=== PATIENT | male | born 1945 | race Caucasian/White ===

== ENCOUNTER 2017-07-25 14:23 | Inpatient (IN) | payer OTHER, MEDICARE ==
[2017-07-25 15:03] LABS: ABSOLUTE BASOPHILS # (AUTO) 0.1 10^3/uL (0.0-0.2); ABSOLUTE EOSINOPHILS # (AUTO) 0.1 10^3/uL (0.0-0.6); ABSOLUTE LYMPHOCYTES (AUTO) 0.8 10^3/uL (0.5-4.7); ABSOLUTE MONOCYTES (AUTO) 0.6 10^3/uL (0.1-1.4); ABSOLUTE NEUT (AUTO) 5.2 10^3/uL (1.7-8.2); BASOPHILS % (AUTO) 1.3 % (0-2); EOSINOPHILS % (AUTO) 1.8 % (0-6); HEMATOCRIT 43.5 % (37.9-51.0); HEMOGLOBIN 14.4 g/dL (13.5-17.0); MEAN CORPUSCULAR HEMOGLOBIN 33.7 pg (27.0-33.4); MEAN CORPUSCULAR HGB CONC 33.1 g/dL (32.0-36.0); MEAN CORPUSCULAR VOLUME 102 fl (80-97); MONOCYTES % (AUTO) 8.2 % (3-13); PLATELET COUNT 237 10^3/uL (150-450); RED BLOOD COUNT 4.28 10^6/uL (4.35-5.55); RED CELL DISTRIBUTION WIDTH 16.8 % (11.5-14.0); SEGMENTED NEUTROPHILS % (AUTO) 76.7 % (42-78); TOTAL CELLS COUNTED % (AUTO) 100 %; WHITE BLOOD COUNT 6.8 10^3/uL (4.0-10.5)
[2017-07-25 15:11] LABS: ALANINE AMINOTRANSFERASE 21 U/L (21-72); ALBUMIN 4.1 g/dL (3.5-5.0); ALKALINE PHOSPHATASE 68 U/L (38-126); ANION GAP 13 (5-19); ASPARTATE AMINO TRANSFERASE 29 U/L (17-59); BILIRUBIN,DIRECT 0.6 mg/dL (0.0-0.4); BILIRUBIN,TOTAL 0.9 mg/dL (0.2-1.3); BLOOD UREA NITROGEN 22 mg/dL (7-20); CALCIUM 10.2 mg/dL (8.4-10.2); CARBON DIOXIDE 23 mmol/L (22-30); CHLORIDE 110 mmol/L (98-107); CREATINE KINASE 52 U/L (55-170); GLUCOSE 139 mg/dL (75-110); POTASSIUM 4.2 mmol/L (3.6-5.0); SODIUM 146.2 mmol/L (137-145); TOTAL PROTEIN 7.3 g/dL (6.3-8.2)
--- NOTE | 2017-07-25 15:15 | RADIOLOGY REPORT (SQ) ---
EXAM DESCRIPTION: CT HEAD WITHOUT COMPLETED DATE/TIME: 07/25/2017 2:57 pm REASON FOR STUDY: bed 16 s/p fall per dr barragan +loc/on plavix COMPARISON: None. TECHNIQUE: Axial images acquired through the brain without intravenous contrast. Images reviewed wi th bone, brain and subdural windows. Images stored on PACS. All CT scanners at this facility use dose modulation, iterative reconstruction, and/or weight based d osing when appropriate to reduce radiation dose to as low as reasonably achievable (ALARA). [facility]: Dose Right [facility]: CareDose [facility]: Dose Right [facility]: Teradose 4D [facility]: [employer] RADIATION DOSE: CT Rad equipment meets quality standard of care and radiation dose reduction techniq ues were employed. CTDIvol: 64.6 mGy. DLP: 1163 mGy-cm.mGy. LIMITATIONS: None. FINDINGS: VENTRICLES: Prominent. CEREBRUM: No masses. No hemorrhage. No midline shift. Extensive areas of low density in the white matter most likely due to chronic micro-vascular ischemic change/chronic infarction. No evidence for acute infarction. CEREBELLUM: No masses. No hemorrhage. No alteration of density. No evidence for acute infarction. EXTRAAXIAL SPACES: Age-related involutional change. No fluid collections. No masses. ORBITS AND GLOBE: No intra- or extraconal masses. Normal contour of globe without masses. CALVARIUM: No fracture. PARANASAL SINUSES: No fluid or mucosal thickening. SOFT TISSUES: No mass or hematoma. OTHER: No other significant finding. IMPRESSION: EXTENSIVE AREAS OF WHITE MATTER DISEASE PRESUMABLY REPRESENTING CHRONIC MICRO AND MACRO VASCULAR ISCHEMIC CHANGE. NO CT EVIDENCE OF ACUTE INJURY. EVIDENCE OF ACUTE STROKE: NO. TECHNICAL DOCUMENTATION: JOB ID: [id number] Quality ID # [id number]: Final reports with documentation of one or more dose reduction techniques (e.g., Au tomated exposure control, adjustment of the mA and/or kV according to patient size, use of iterative reconstruction technique) 2010 [employer]- All Rights Reserved
[2017-07-25] MEDS ORDERED: NORMAL SALINE 1000 ML 1,000 ML IV ONE (15:17)
--- NOTE | 2017-07-25 15:20 | RADIOLOGY REPORT (SQ) ---
EXAM DESCRIPTION: CT CERVICAL SPINE WITHOUT COMPLETED DATE/TIME: 07/25/2017 2:57 pm REASON FOR STUDY: bed 16 s/p fall per dr barragan +loc/on plavix COMPARISON: None. TECHNIQUE: Axial images acquired through the cervical spine without intravenous contrast. Images re viewed with lung, soft tissue and bone windows. Reconstructed coronal and sagittal MPR images review ed. Images stored on PACS. All CT scanners at this facility use dose modulation, iterative reconstruction, and/or weight based d osing when appropriate to reduce radiation dose to as low as reasonably achievable (ALARA). [facility]: Dose Right [facility]: CareDose [facility]: Dose Right [facility]: Teradose 4D [facility]: [employer] RADIATION DOSE: CT Rad equipment meets quality standard of care and radiation dose reduction techniq ues were employed. CTDIvol: 17.0 mGy. DLP: 366 mGy-cm. mGy. LIMITATIONS: None. FINDINGS: ALIGNMENT: Anatomic. MINERALIZATION: Normal. VERTEBRAL BODIES: No fractures or dislocation. DISCS: Multilevel disc space narrowing with osteophytes. FACETS, LATERAL MASSES, POSTERIOR ELEMENTS: Facet arthropathy. No fractures. No dislocation. No ac [place] findings. HARDWARE: None in the spine. VISUALIZED RIBS: No fractures. LUNG APICES AND SOFT TISSUES: there are extensive atherosclerotic calcifications with dolichoectasia /aneurysmal dilatation of the left common and internal carotid artery is measuring up to 1.8 cm. Sof t tissues otherwise unremarkable. OTHER: No other significant finding. IMPRESSION: DEGENERATIVE CHANGE OF THE CERVICAL SPINE WITHOUT FRACTURE. 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 TECHNICAL DOCUMENTATION: JOB ID: [id number] Quality ID # [id number]: Final reports with documentation of one or more dose reduction techniques (e.g., Au tomated exposure control, adjustment of the mA and/or kV according to patient size, use of iterative reconstruction technique) 2010 [employer]- All Rights Reserved
--- NOTE | 2017-07-25 15:21 | RADIOLOGY REPORT (SQ) ---
EXAM DESCRIPTION: CHEST SINGLE VIEW COMPLETED DATE/TIME: 07/25/2017 3:07 pm REASON FOR STUDY: bed 16 COMPARISON: None. NUMBER OF VIEWS: One view. TECHNIQUE: Single frontal radiographic view of the chest acquired. LIMITATIONS: None. FINDINGS: LUNGS AND PLEURA: Retrocardiac airspace disease/ pleural effusion. Lungs otherwise clear. No pneumothorax. MEDIASTINUM AND HILAR STRUCTURES: No masses. Contour normal. HEART AND VASCULAR STRUCTURES: Heart enlarged without failure. Normal vasculature. BONES: No acute findings. HARDWARE: Post CABG change peer OTHER: No other significant finding. IMPRESSION: RETROCARDIAC AIRSPACE DISEASE/ PLEURAL EFFUSION MAY BE ACUTE OR CHRONIC. NO ADDITIONAL ACUTE OR SIGNIFICANT FINDINGS. TECHNICAL DOCUMENTATION: JOB ID: [id number] 1976 [employer]- All Rights Reserved
[2017-07-25 15:23] LABS: CREATINE KINASE MB 1.67 ng/mL (<4.55)
[2017-07-25 15:25] LABS: TROPONIN I 0.077 ng/mL
[2017-07-25 15:32] LABS: INTERNATIONAL RATION (INR) 1.05; PROTHROMBIN TIME 14.5 SEC (11.4-15.4)
--- NOTE | 2017-07-25 15:55 | ER Document Report ---
ED General - General Information source: Patient <ADELINA JACOBO - Last Filed: 07/26/17 00:42> - General Information source: Patient TRAVEL OUTSIDE OF THE [place] IN LAST 30 DAYS: No <HERIBERTO TREADWELL - Last Filed: 07/26/17 00:51> <DEENA VALDEZ - Last Filed: 07/26/17 00:57> - General Chief Complaint: Syncope Stated Complaint: POSSIBLE SYNCOPE Time Seen by Provider: 07/25/17 14:45 Notes: Mr. Vilchis is a 71 y.o male with a PMHx of HTN, COPD, double bypass surgery and multiple back surgeries. He presents to the ED s/p syncopal episode. A nurse saw him collapse to the floor of [facility] not breathing and without a pulse. She preformed CPR for about one minute and he did not have to receive any medication or a shock. He states that he was in [facility] and woke up with people gathered around him. He states that he was feeling well before going to [facility] but does admit to lightheadedness. Patient reports pain to his chest wall consistent with receiving compressions. Patient denies any N/V/D or paresthesia. He denies any Hx of DM or thyroid issues. Patient states that he used to wear an oxygen concentrator but denies using any oxygen at home recently because he was reexamined and his doctor told him he did not need the oxygen anymore. He reports taking Plavix. (HERIBERTO TREADWELL) - Related Data Allergies/Adverse Reactions: No Known Allergies Allergy (Verified 07/25/17 14:48) Past Medical History - General Information source: Patient - Social History Smoking Status: Former Smoker - quit 6 months ago Cigarette use (# per day): No Chew tobacco use (# tins/day): No Frequency of alcohol use: None Drug Abuse: None Patient has suicidal ideation: No Patient has homicidal ideation: No - Past Medical History Cardiac Medical History: Reports: Hx Hypercholesterolemia, Hx Hypertension Pulmonary Medical History: Reports: Hx COPD Renal/ Medical History: Denies: Hx Peritoneal Dialysis Past Surgical History: Reports: Hx Cardiac Catheterization, Hx Cardiac Surgery - double bypass <HERIBERTO TREADWELL - Last Filed: 07/26/17 00:51> - Social History Family History: CAD - Past Medical History Cardiac Medical History: Reports: Hx Hypertension <MISTIDEENA - Last Filed: 07/26/17 00:57> Review of Systems - Review of Systems Constitutional: No symptoms reported EENT: No symptoms reported Cardiovascular: Chest pain - Chest wall, Syncope - vs cardiac arrest, Lightheaded Respiratory: No symptoms reported Gastrointestinal: No symptoms reported. denies: Diarrhea, Nausea, Vomiting Genitourinary: No symptoms reported Male Genitourinary: No symptoms reported Musculoskeletal: No symptoms reported Skin: No symptoms reported Hematologic/Lymphatic: No symptoms reported Neurological/Psychological: No symptoms reported <HERIBERTO TREADWELL - Last Filed: 07/26/17 00:51> Physical Exam <ADELINA JACOBO - Last Filed: 07/26/17 00:42> <HERIBERTO TREADWELL - Last Filed: 07/26/17 00:51> <DEENA VALDEZ - Last Filed: 07/26/17 00:57> - Vital signs Vitals: Temp Resp BP Pulse Ox 97.8 F 18 133/92 H 89 L 07/25/17 14:27 07/25/17 14:27 07/25/17 14:27 07/25/17 14:27 - Notes Notes: GENERAL: Alert, interacts well. No acute distress. HEAD: Normocephalic, atraumatic. EYES: Pupils equal, round, and reactive to light. Extraocular movements intact. ENT: Oral mucosa moist, tongue midline. Nares patent, no nasal septal hematoma, TM's intacts. NECK: Full range of motion. Supple. Trachea midline. LUNGS: Clear to auscultation bilaterally, no wheezes, rales, or rhonchi. No respiratory distress. HEART: Regular rate and rhythm. No murmurs, gallops, or rubs. Well healed sternotomy scar. Abrasions to anterior chest wall consistent with CPR through clothing. ABDOMEN: Soft, non-tender. Non-distended. Bowel sounds present in all 4 quadrants. EXTREMITIES: Moves all 4 extremities spontaneously. No edema, radial and dorsalis pedis pulses 2/4 bilaterally. No cyanosis. NEUROLOGICAL: Alert and oriented x3. Normal speech. cranial nerves II through XII grossly intact. Biceps and patellar DTRs 2+ bilaterally. PSYCH: Normal affect, normal mood. SKIN: Warm, dry, normal turgor. (HERIBERTO TREADWELL) Course - Laboratory Result Diagrams: 07/25/17 14:37 07/25/17 14:37 <ADELINA JACOBO - Last Filed: 07/26/17 00:42> - Laboratory Result Diagrams: 07/25/17 14:37 07/25/17 14:37 <HERIBERTO TREADWELL - Last Filed: 07/26/17 00:51> - Laboratory Result Diagrams: 07/25/17 14:37 07/25/17 14:37 <DEENA VALDEZ - Last Filed: 07/26/17 00:57> - Re-evaluation Re-evalutation: 07/25/17 17:32 CBC grossly unremarkable, coags INR slightly prolonged at 1.05, ABG actually appears to be venous with a PO2 of 21.4 and an oxygen saturation of 34.2%, when it was drawn he was approximately 95%. When interpreted as a venous blood gas this is unremarkable, chemistries show elevated BUN and creatinine at 22 and 1.66 respectively, patient states that he knows he has some kidney damage but does not know his usual range, cardiac enzymes are indeterminate with a troponin of 0.077. 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 Chest x-ray does not show any displaced rib fractures, there is some retrocardiac airspace disease versus pleural effusion which may be acute or chronic. No indication for chest tube at this point, no indication for antibiotics, no suspicion for pneumonia. At this point I am not certain the patient actually had a cardiac arrest as he was out for a very short period of time and has come back with no significant abnormalities on his lab, did not require any medications, has not had any alteration in mental status or hypotension and has really grossly normal EKGs. It required less than a full round of CPR to bring him back. I did discuss this patient with Dr. Callahan the hospitalist who agrees with admitting the patient to the hospital for syncope and further observation of his cardiac status. Patient and family members are agreeable to this. Patient will go to the [facility]. 07/25/17 17:36 Hypertension will continue to be followed in the hospital. (DEENA VALDEZ) - Vital Signs Vital signs: Temp Pulse Resp BP Pulse Ox 97.8 F 24 H 143/88 H 94 07/25/17 14:27 07/25/17 19:03 07/25/17 19:03 07/25/17 19:06 - Laboratory Laboratory results interpreted by me: 07/25/17 07/25/17 07/25/17 14:37 14:37 16:10 RBC 4.28 L MCV 102 H MCH 33.7 H RDW 16.8 H Lymphocytes % 12.0 L ABG pO2 21.4 L* ABG O2 Saturation 34.2 L Sodium 146.2 H Chloride 110 H BUN 22 H Creatinine 1.66 H Est GFR ( Amer) 50 L Est GFR (Non-Af Amer) 41 L Glucose 139 H Direct Bilirubin 0.6 H Creatine Kinase 52 L Urine Protein 07/25/17 17:00 RBC MCV MCH RDW Lymphocytes % ABG pO2 ABG O2 Saturation Sodium Chloride BUN Creatinine Est GFR ( Amer) Est GFR (Non-Af Amer) Glucose Direct Bilirubin Creatine Kinase Urine Protein 100 H - EKG Interpretation by Me Additional EKG results interpreted by me: 07/25/17 17:33 EKG shows sinus rhythm rate of 75, intermittent left bundle branch block, 1 PVC , LVH, ST segment depressions with T-wave inversions isolated in V6 per my interpretation. (DEENA VALDEZ) Discharge <ADELINA JACOBO - Last Filed: 07/26/17 00:42> <HERIBERTO TREADWELL - Last Filed: 07/26/17 00:51> - Discharge Admitting Provider: Hospitalist - [place] [facility] Admitted: [facility] <DEENA VALDEZ - Last Filed: 07/26/17 00:57> - Discharge Clinical Impression: Syncope Qualifiers: Syncope type: unspecified Qualified Code(s): R55 - Syncope and collapse Hypertension Qualifiers: Hypertension type: essential hypertension Qualified Code(s): I10 - Essential ( primary) hypertension Condition: Fair Disposition: ADMITTED INPATIENT Scribe Attestation: 07/26/17 00:56 I personally performed the services described in the documentation, reviewed and edited the documentation which was dictated to the scribe in my presence, and it accurately records my words and actions. (DEENA VALDEZ) Scribe Documentation - Scribe Written by Scribe:: Alli Moss, [id number], 07/25/2017 acting as scribe for :: Misti <ADELINA JACOBO - Last Filed: 07/26/17 00:42>
[2017-07-25 16:30] LABS: ARTERIAL BLOOD BASE EXCESS -2.8 mmol/L; ARTERIAL BLOOD H2CO3 1.21 mmol/L (1.05-1.35); ARTERIAL BLOOD HCO3 22.4 mmol/L (20-26); ARTERIAL BLOOD O2 SATURATION 34.2 % (94-98); ARTERIAL BLOOD PCO2 40.1 mmHg (35-45); ARTERIAL BLOOD PH 7.36 (7.35-7.45); ARTERIAL BLOOD TOTAL CO2 23.6 mmol/L (23-27)
[2017-07-25 16:49] LABS: ARTERIAL BLOOD FIO2 21%
[2017-07-25 16:53] LABS: ARTERIAL BLOOD PO2 21.4 mmHg (80-100)
[2017-07-25 17:21] LABS: APPEARANCE,URINE SLIGHTLY-CLOUDY; BILIRUBIN,URINE NEGATIVE (NEGATIVE); COLOR,URINE YELLOW; GLUCOSE, URINE NEGATIVE (NEGATIVE); KETONES,URINE NEGATIVE (NEGATIVE); LEUKOCYTE ESTERASE,URINE NEGATIVE (NEGATIVE); NITRITE,URINE NEGATIVE (NEGATIVE); PROTEIN,URINE 100 mg/dL (NEGATIVE); URINE SPECIFIC GRAVITY 1.023; UROBILINOGEN,URINE NEGATIVE mg/dL (<2.0)
[2017-07-25] MEDS ORDERED: IPRATROPIUM/ALBUTEROL 0.5-2.5 MG/3 ML AMPUL NEB PRN (18:25)
[2017-07-25] MEDS ORDERED: ONDANSETRON 4 MG TAB.RAPDIS PO PRN (18:25)
[2017-07-25] MEDS ORDERED: ACETAMINOPHEN 325 MG TABLET PO PRN (18:25)
--- NOTE | 2017-07-25 18:48 | PDOC H&P ---
History of Present Illness Admission Date/PCP: 07/25/17 17:47 Patient complains of: Passed out History of Present Illness: BRIGITTE KRAMER is a 71 year old male presents to the hospital after going to [facility] in passing out. Patient states that he recently relocated here and has not been wearing his oxygen. Patient states that he does have COPD and has been told that he needs oxygen at all times. Family states that patient has been somewhat unsteady on his feet when he walks around the home. Patient states that he has had episodes of dizziness on a regular basis. When patient was asked more about dizziness he reports that he has at least 2 episodes every 2 weeks. Patient states that he has not passed out before. Patient denies any chest pain, palpitations, nausea, vomiting, or fever. Past Medical History Cardiac Medical History: Reports: Hyperlipidema, Hypertension Pulmonary Medical History: Reports: Chronic Obstructive Pulmonary Disease (COPD) Past Surgical History Past Surgical History: Reports: Cardiac Catheterization Social History Information Source: Patient Lives with: Alone, Family Smoking Status: Former Smoker - quit 6 months ago Frequency of Alcohol Use: None Hx Recreational Drug Use: No Hx Prescription Drug Abuse: No - She goes to - [facility] Resuscitation Status: Full Code Family History Family History: CAD, DM, Hypertension Parental Family History Reviewed: Yes Children Family History Reviewed: Yes Sibling(s) Family History Reviewed.: Yes Medication/Allergy Home Medications: Albuterol Sulfate [Proair Respiclick] 90 mcg IH QID 07/25/17 Amlodipine Besylate 10 mg PO DAILY 07/25/17 Aspirin [Aspirin EC] 81 mg PO DAILY 07/25/17 Budesonide/Formoterol Fumarate [Symbicort 160-4.5 Mcg Inhaler] 10.2 gm IH BID Clopidogrel Bisulfate [Plavix 75 mg Tablet] 75 mg PO DAILY 07/25/17 Furosemide [Lasix 20 mg Tablet] 20 mg PO QAM 07/25/17 Lisinopril 40 mg PO DAILY 07/25/17 Tiotropium [place] [Spiriva Handihaler 18 mcg/dose (30 Dose)] 1 cap IH DAILY 05/01 Allergies/Adverse Reactions: No Known Allergies Allergy (Verified 07/25/17 14:48) Review of Systems Constitutional: PRESENT: weakness, weight loss. ABSENT: chills, fever(s), headache(s), weight gain Eyes: ABSENT: visual disturbances Ears: ABSENT: hearing changes Cardiovascular: ABSENT: chest pain, dyspnea on exertion, edema, orthropnea, palpitations Respiratory: ABSENT: cough, hemoptysis Gastrointestinal: ABSENT: abdominal pain, constipation, diarrhea, hematemesis, hematochezia, nausea, vomiting Genitourinary: ABSENT: dysuria, hematuria Musculoskeletal: PRESENT: muscle weakness. ABSENT: joint swelling Integumentary: ABSENT: rash, wounds Neurological: PRESENT: weakness Psychiatric: ABSENT: anxiety, depression, homidical ideation, suicidal ideation Endocrine: ABSENT: cold intolerance, heat intolerance, polydipsia, polyuria Hematologic/Lymphatic: ABSENT: easy bleeding, easy bruising Physical Exam Vital Signs: Temp Pulse Resp BP Pulse Ox 97.8 F 24 H 165/103 H 91 L 07/25/17 14:27 07/25/17 17:21 07/25/17 17:21 07/25/17 17:21 General appearance: PRESENT: no acute distress, thin Head exam: PRESENT: atraumatic, normocephalic Eye exam: PRESENT: conjunctiva pink, EOMI. ABSENT: scleral icterus Ear exam: PRESENT: normal external ear exam Mouth exam: PRESENT: moist, tongue midline Neck exam: ABSENT: carotid bruit, JVD, lymphadenopathy, thyromegaly Respiratory exam: PRESENT: accessory muscle use. ABSENT: chest wall tenderness , clear to auscultation huong, crackles, decreased breath sounds, prolonged expiratory phas, rales, retraction, rhonchi, stridor, symmetrical, tachypnea, unlabored, wheezes, other Cardiovascular exam: PRESENT: RRR. ABSENT: diastolic murmur, rubs, systolic murmur Pulses: PRESENT: normal dorsalis pedis pul Vascular exam: PRESENT: normal capillary refill GI/Abdominal exam: PRESENT: normal bowel sounds, soft. ABSENT: distended, guarding, mass, organolmegaly, rebound, tenderness Rectal exam: PRESENT: deferred Extremities exam: PRESENT: full ROM. ABSENT: calf tenderness, clubbing, pedal edema Musculoskeletal exam: PRESENT: full ROM Neurological exam: PRESENT: alert, awake, oriented to person, oriented to place , oriented to time, oriented to situation, CN II-XII grossly intact. ABSENT: motor sensory deficit Psychiatric exam: PRESENT: appropriate affect, normal mood. ABSENT: homicidal ideation, suicidal ideation Skin exam: PRESENT: dry, intact, warm. ABSENT: cyanosis, rash Results Impressions: Cervical Spine CT 07/25/17 00:00 IMPRESSION: DEGENERATIVE CHANGE OF THE CERVICAL SPINE WITHOUT FRACTURE. 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 Chest X-Ray 07/25/17 00:00 IMPRESSION: RETROCARDIAC AIRSPACE DISEASE/ PLEURAL EFFUSION MAY BE ACUTE OR CHRONIC. NO ADDITIONAL ACUTE OR SIGNIFICANT FINDINGS. Head CT 07/25/17 00:00 IMPRESSION: EXTENSIVE AREAS OF WHITE MATTER DISEASE PRESUMABLY REPRESENTING CHRONIC MICRO AND MACRO VASCULAR ISCHEMIC CHANGE. NO CT EVIDENCE OF ACUTE INJURY. EVIDENCE OF ACUTE STROKE: NO. Assessment & Plan - Diagnosis (1) Syncope Qualifiers: Syncope type: unspecified Qualified Code(s): R55 - Syncope and collapse Is this a current diagnosis for this admission?: Yes Plan: This patient on telemetry, 2D echo ordered, cardiology consult, and orthostatics. His syncope is most likely result of patient being hypoxic due to him not wearing his oxygen. (2) CAD (coronary artery disease) of bypass graft Is this a current diagnosis for this admission?: Yes Plan: Pt denies chest pain. 2D echo ordered. Cardiology consult placed (3) COPD (chronic obstructive pulmonary disease) Is this a current diagnosis for this admission?: Yes Plan: Requiring continuous O2. Patient will be placed on oxygen here and will have case management see if they can arrange portable oxygen for patient. As needed albuterol written. (4) Hypertension Qualifiers: Hypertension type: essential hypertension Qualified Code(s): I10 - Essential (primary) hypertension Is this a current diagnosis for this admission?: Yes Plan: We will resume patient's home medications once verified (5) HLD (hyperlipidemia) Is this a current diagnosis for this admission?: Yes Plan: Statin (6) CKD (chronic kidney disease) stage 3, GFR 30-59 ml/min Is this a current diagnosis for this admission?: Yes Plan: Will continue to monitor (7) DVT prophylaxis Is this a current diagnosis for this admission?: Yes Plan: SCDs - Time Time Spent: 30 to 50 Minutes
--- NOTE | 2017-07-25 19:17 | RADIOLOGY REPORT (SQ) ---
EXAM DESCRIPTION: CT CHEST WITHOUT COMPLETED DATE/TIME: 07/25/2017 6:55 pm REASON FOR STUDY: weight loss COMPARISON: 07/25/2017 chest radiograph TECHNIQUE: CT scan performed of the chest without intravenous contrast. Images reviewed with lung, soft tissue and bone windows. Reconstructed coronal and sagittal MPR images reviewed. All images st ored on PACS. All CT scanners at this facility use dose modulation, iterative reconstruction, and/or weight based d osing when appropriate to reduce radiation dose to as low as reasonably achievable (ALARA). [facility]: Dose Right [facility]: CareDose [facility]: Dose Right [facility]: Teradose 4D [facility]: Smart [employer] RADIATION DOSE: CT Rad equipment meets quality standard of care and radiation dose reduction techniq ues were employed. CTDIvol: 6.2 mGy. DLP: 271 mGy-cm. mGy. LIMITATIONS: No technical limitations. FINDINGS: LUNGS AND PLEURA: Moderate bilateral posterior layering effusions. No air bronchograms. No pneumothorax. No discrete masses. HILAR AND MEDIASTINAL STRUCTURES: No identified masses or abnormal nodes. No obvious aneurysm. HEART AND VASCULAR STRUCTURES: Dilated calcified ascending aorta. 4.3 cm. UPPER ABDOMEN: Gallstones. THYROID AND OTHER SOFT TISSUES: No masses. No adenopathy. BONES: Sternal wires. HARDWARE: None in the chest. OTHER: No other significant findings. IMPRESSION: Moderate bilateral posteriorly layering effusions. TECHNICAL DOCUMENTATION: JOB ID: [id number] Quality ID # [id number]: Final reports with documentation of one or more dose reduction techniques (e.g., Au tomated exposure control, adjustment of the mA and/or kV according to patient size, use of iterative reconstruction technique) 2010 [employer]- All Rights Reserved
--- NOTE | 2017-07-25 19:27 | PDOC CONSULTATION ---
Consultation Consult Date: 07/25/17 Attending physician:: ALECIA GREEN Consult reason:: Syncope History of Present Illness Admission Date/PCP: 07/25/17 17:47 Patient complains of: Syncope History of Present Illness: BRIGITTE KRAMER is a 71 year old male presents to the hospital after going to [facility] and passing out. Patient states that he recently relocated here and has not been wearing his oxygen. Patient states that he does have COPD and has been told that he needs oxygen at all times. Family states that patient has been somewhat unsteady on his feet when he walks around the home. Patient states that he has had episodes of dizziness on a regular basis. When patient was asked more about dizziness he reports that he has at least 2 episodes every 2 weeks. Patient states that he has not passed out before. Patient denies any chest pain, palpitations, nausea, vomiting, or fever. This history was reviewed and confirmed. Patient however claims that few weeks ago he had a episode with his stomach ready had nausea vomiting and diarrhea for several days. Patient denied any history of prior syncopal spells, seizure disorder or any history of low blood sugar. He does have history of coronary artery disease having had two-vessel coronary artery bypass graft surgery approximately 5 years ago. He did quit smoking at that time but was diagnosed to have significant COPD. Past Medical History Cardiac Medical History: Reports: Hyperlipidema, Hypertension Pulmonary Medical History: Reports: Chronic Obstructive Pulmonary Disease (COPD) Past Surgical History Past Surgical History: Reports: Cardiac Catheterization, Coronary Artery Bypass Graft Social History Information Source: Patient Lives with: Alone, Family Smoking Status: Former Smoker - quit 6 months ago Frequency of Alcohol Use: None Hx Recreational Drug Use: No Hx Prescription Drug Abuse: No - She goes to - [facility] Resuscitation Status: Full Code Surrogate healthcare decision maker:: Patient's son is the surrogate decision-maker Family History Family History: CAD, DM, Hypertension Parental Family History Reviewed: Yes Children Family History Reviewed: Yes Sibling(s) Family History Reviewed.: Yes Medication/Allergy Home Medications: Albuterol Sulfate [Proair Respiclick] 90 mcg IH QID 07/25/17 Amlodipine Besylate 10 mg PO DAILY 07/25/17 Aspirin [Aspirin EC] 81 mg PO DAILY 07/25/17 Budesonide/Formoterol Fumarate [Symbicort 160-4.5 Mcg Inhaler] 10.2 gm IH BID Clopidogrel Bisulfate [Plavix 75 mg Tablet] 75 mg PO DAILY 07/25/17 Furosemide [Lasix 20 mg Tablet] 20 mg PO QAM 07/25/17 Lisinopril 40 mg PO DAILY 07/25/17 Tiotropium [place] [Spiriva Handihaler 18 mcg/dose (30 Dose)] 1 cap IH DAILY 05/01 Allergies/Adverse Reactions: No Known Allergies Allergy (Verified 07/25/17 14:48) Review of Systems Review of Systems: Please see history of present illness and past medical history as wall. Constitutional: No fever or chills reported. Head : No recent chronic headaches, recent head injury. Eyes: No recent eye pain, diplopia, redness, discharge, acute visual changes. Ears: No recent chronic ear pain, acute hearing loss, ear discharge. Oral cavity: No recent ulcerations, bleeding, oral cavity discomfort. Neck: No recent acute neck pain reported. Hematologic: No recent easy bruising or bleeding or hematologic malignancy reported. Lymphatic: No recent lymphatic malignancy, chronic lymphadenopathy reported yet Cardiovascular system review: See history of present illness. Respiratory system review: No recent chronic cough, hemoptysis, blood clots in the lungs reported. Mild Shortness of breath on exertion. History of COPD Gastrointestinal system review: Negative for any recent acute or chronic abdominal pain, hematemesis, melena, recent change in bowel habits. History of nausea vomiting diarrhea a few weeks ago with self subsided. Genitourinary system review: No recent acute or chronic hematuria, flank pain, UTI etc. reported. Skin system review: Negative for any recent abnormal bruising, no rash, no pruritus reported. Neurologic: History of syncopal spell today and intermittent dizziness. No prior history of strokes, mini strokes, seizure disorder. Psychologic: No history of major psychosis or major depression reported. Musculoskeletal: Minor aches and pains reported. No acute joint swelling reported. Endocrine: No recent polyuria, polydipsia, recent heat or cold intolerance. Physical Exam Vital Signs: Temp Pulse Resp BP Pulse Ox 97.8 F 24 H 143/88 H 94 07/25/17 14:27 07/25/17 19:03 07/25/17 19:03 07/25/17 19:06 Exam: GENERAL: well-nourished and in no acute distress. Alert and oriented x3 HEAD: Atraumatic, normocephalic. EYES: Pupils equal round and reactive to light, extraocular movements intact, sclera anicteric, conjunctiva are normal. ENT: TMs normal, nares patent, oropharynx clear without exudates. Moist mucous membranes. No oral ulcerations or bleeding gums noted NECK: supple without lymphadenopathy. Trachea is central. No cervical or axillary lymphadenopathy noted. Carotids are 2+, JVD WNL LUNGS: Respiration seems nonlabored, no significant accessory muscle action noted. Breath sounds clear to auscultation bilaterally and equal noted. No wheezes rales or rhonchi noted. No significant dullness noted on percussion. CHEST: Palpation of the chest wall shows no significant chest wall tenderness. No other significant abnormalities noted. HEART: [place] [employer], No PSH, 1/6 JAH aortic area, 1/6 perkins systolic murmur mitral area, no rubs, no gallops. ABDOMEN: Soft, no significant tenderness appreciated, normoactive bowel sounds. No guarding, no rebound. No rigidity noted . No masses appreciated. EXTREMITIES: Pedal pulses are 1-2+, no calf tenderness noted. No clubbing or cyanosis.trace to 1+ pedal edema noted NEUROLOGICAL: Focused neurological exam showed no significant neurologic deficit. Normal speech, no focal weakness appreciated. PSYCH: Normal mood, normal affect. Judgment and insight within normal limits. SKIN: No significant ecchymosis, rash, ulcerations or signs of pruritus noted. MUSCULOSKELETAL EXAM: No significant joint swelling noted. Results EKG Comments: Sinus rhythm, left bundle branch block pattern. No acute ST-T wave changes noted. Impressions: Cervical Spine CT 07/25/17 00:00 IMPRESSION: DEGENERATIVE CHANGE OF THE CERVICAL SPINE WITHOUT FRACTURE. 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 Chest CT 07/25/17 00:00 IMPRESSION: Moderate bilateral posteriorly layering effusions. Chest X-Ray 07/25/17 00:00 IMPRESSION: RETROCARDIAC AIRSPACE DISEASE/ PLEURAL EFFUSION MAY BE ACUTE OR CHRONIC. NO ADDITIONAL ACUTE OR SIGNIFICANT FINDINGS. Head CT 07/25/17 00:00 IMPRESSION: EXTENSIVE AREAS OF WHITE MATTER DISEASE PRESUMABLY REPRESENTING CHRONIC MICRO AND MACRO VASCULAR ISCHEMIC CHANGE. NO CT EVIDENCE OF ACUTE INJURY. EVIDENCE OF ACUTE STROKE: NO. Assessment & Plan - Diagnosis (1) Syncope Qualifiers: Syncope type: unspecified Qualified Code(s): R55 - Syncope and collapse Is this a current diagnosis for this admission?: Yes (2) Coronary artery disease Qualifiers: Coronary Disease-Associated Artery/Lesion type: unspecified vessel or lesion type [place] vs. transplanted heart: [place] heart Associated angina: angina presence unspecified Qualified Code(s): I25.10 - Atherosclerotic heart disease of [place] coronary artery without angina pectoris Is this a current diagnosis for this admission?: Yes (3) CKD (chronic kidney disease) stage 3, GFR 30-59 ml/min Is this a current diagnosis for this admission?: Yes (4) COPD (chronic obstructive pulmonary disease) Qualifiers: COPD type: unspecified COPD Qualified Code(s): J44.9 - Chronic obstructive pulmonary disease, unspecified Is this a current diagnosis for this admission?: Yes (5) HLD (hyperlipidemia) Is this a current diagnosis for this admission?: Yes (6) Hypertension Qualifiers: Hypertension type: essential hypertension Qualified Code(s): I10 - Essential (primary) hypertension Is this a current diagnosis for this admission?: Yes - Notes Notes: Syncope: Exact etiology not clear but could be related to cardiac dysrhythmia at patient's age. Possible orthostatic hypotension, possibly vasovagal, hypoglycemia transient, seizure disorder, hypoxemia etc. in the differential diagnosis. Patient will benefit from cardiac monitoring while inpatient and also as an outpatient. Patient will need a 2D echocardiogram. Coronary artery disease: Currently symptomatically stable without any chest pain. Await cardiac enzymes results. Elderly can have silent NE. COPD: Patient seems to have significant emphysema based on exam. Continue bronchodilator therapy. Chronic kidney disease: Currently stable. Hypertension: Currently stable. Dyslipidemia: Continue statin therapy. - Time Time Spent: 30 to 50 Minutes - CODE STATUS was discussed, patient remains full code. Surrogate decision-maker unchanged. Multiple medical problems were addressed. More than 50% of the time spent coordinating care, discussing management plans with involved caregivers. Management plans discussed with involved personnels. Medical decision making was of moderate to high complexity , patient's has multiple comorbidities. Medications reviewed and adjusted accordingly: Yes
[2017-07-25 19:41] LABS: CREATINE KINASE MB 2.14 ng/mL (<4.55); TROPONIN I 0.081 ng/mL
[2017-07-25] MEDS ORDERED: ONDANSETRON HCL INJ/PF 4 MG/2 ML SDV IV ONE (20:15)
--- NOTE | 2017-07-25 20:49 | EKG REPORT ---
SEVERITY:- ABNORMAL ECG - SINUS RHYTHM PROBABLE LEFT ATRIAL ABNORMALITY LEFT BUNDLE BRANCH BLOCK VPC : Confirmed by: Pascual Salgado 25-Jul-2017 20:49:15
--- NOTE | 2017-07-25 23:51 | RADIOLOGY REPORT (SQ) ---
EXAM DESCRIPTION: CT ABDOMEN AND PELVIS WITHOUT CONTRAST CLINICAL HISTORY: weight loss COMPARISON: None Available. TECHNIQUE: CT of the abdomen and pelvis without IV contrast. FINDINGS: Abdomen: The liver has normal size and density. Cholelithiasis. Date granulomas in the spleen. The pancreas demonstrates fatty replacement. No abnormalities of the adrenal glands. The kidneys have normal size and contour without evidence of hydronephrosis. No obstructing ureteral calculi. Evidence obstruction interpolar left kidney likely represents a cyst. 3.0 cm infrarenal abdominal aortic aneurysm. Aortobifemoral bypass graft. Atherosclerotic vascular calcification. No abnormalities of the visualized IVC. No free intraperitoneal air. The stomach and duodenum have normal course. Pelvis: Enlarged prostate. Urinary bladder is unremarkable. No free pelvic fluid or lymphadenopathy. No dilated loops of large or small bowel. No evidence of appendicitis. Subcutaneous gluteal injection granulomas. The visualized lung bases demonstrate small bilateral pleural effusions and bibasilar atelectasis. Cardiomegaly. Prior median sternotomy. No destructive bone lesions identified. Degenerative change of the spine. DLP: 259.16 mGy-cm IMPRESSION: 1. Cholelithiasis without other CT evidence of acute cholecystitis. 2. Small bilateral pleural effusions. 3. Cardiomegaly. 4. 3.0 cm infrarenal abdominal aortic aneurysm. Continued follow-up in 3 years recommended. Aortobifemoral bypass graft. This exam was performed according to our departmental dose-optimization program, which includes automated exposure control, adjustment of the mA and/or kV according to patient size and/or use of iterative reconstruction technique.
--- NOTE | 2017-07-25 23:54 | EKG REPORT ---
SEVERITY:- ABNORMAL ECG - SINUS RHYTHM PROBABLE LEFT ATRIAL ABNORMALITY LEFT BUNDLE BRANCH BLOCK : Confirmed by: Pascual Salgado 25-Jul-2017 23:54:09
[2017-07-26 01:37] LABS: CREATINE KINASE MB 1.99 ng/mL (<4.55)
[2017-07-26 01:54] LABS: TROPONIN I 0.116 ng/mL
[2017-07-26 05:19] LABS: ABSOLUTE BASOPHILS # (AUTO) 0.1 10^3/uL (0.0-0.2); ABSOLUTE EOSINOPHILS # (AUTO) 0.2 10^3/uL (0.0-0.6); ABSOLUTE MONOCYTES (AUTO) 0.7 10^3/uL (0.1-1.4); BASOPHILS % (AUTO) 1.3 % (0-2); EOSINOPHILS % (AUTO) 2.3 % (0-6); HEMATOCRIT 39.5 % (37.9-51.0); HEMOGLOBIN 13.6 g/dL (13.5-17.0); LYMPHOCYTES % (AUTO) 14.1 % (13-45); MEAN CORPUSCULAR HEMOGLOBIN 34.8 pg (27.0-33.4); MEAN CORPUSCULAR HGB CONC 34.3 g/dL (32.0-36.0); MEAN CORPUSCULAR VOLUME 101 fl (80-97); MONOCYTES % (AUTO) 10.6 % (3-13); PLATELET COUNT 205 10^3/uL (150-450); RED CELL DISTRIBUTION WIDTH 16.3 % (11.5-14.0); SEGMENTED NEUTROPHILS % (AUTO) 71.7 % (42-78); TOTAL CELLS COUNTED % (AUTO) 100 %
[2017-07-26 05:52] LABS: ALANINE AMINOTRANSFERASE 29 U/L (21-72); ALBUMIN 3.3 g/dL (3.5-5.0); ALKALINE PHOSPHATASE 59 U/L (38-126); ANION GAP 6 (5-19); ASPARTATE AMINO TRANSFERASE 34 U/L (17-59); BILIRUBIN,DIRECT 0.6 mg/dL (0.0-0.4); BILIRUBIN,TOTAL 0.7 mg/dL (0.2-1.3); BLOOD UREA NITROGEN 21 mg/dL (7-20); CALCIUM 9.7 mg/dL (8.4-10.2); CARBON DIOXIDE 24 mmol/L (22-30); CHLORIDE 113 mmol/L (98-107); CHOLESTEROL 152.17 mg/dL (0-200); GLUCOSE 89 mg/dL (75-110); MAGNESIUM 1.9 mg/dL (1.6-2.3); POTASSIUM 4.5 mmol/L (3.6-5.0); SODIUM 143.2 mmol/L (137-145); TRIGLYCERIDES 118 mg/dL (<150)
[2017-07-26 06:03] LABS: CREATINE KINASE MB 1.9 ng/mL (<4.55); DIRECT LDL 92 mg/dL (<100)
[2017-07-26 06:10] LABS: FREE T4 (FREE THYROXINE) 1.17 ng/dL (0.78-2.19)
[2017-07-26 06:22] LABS: THYROID STIMULATING HORMONE 1.53 uIU/mL (0.47-4.68)
[2017-07-26] MEDS: LANSOPRAZOLE 30 MG TAB.RAP.DR PO SCH (10:58)
--- NOTE | 2017-07-26 13:04 | Physician Advisory Note ---
Physician Advisor ProgressNote .: [facility] I have [facility] medical record for this patient. Physician Advisor Statement: Please consider documenting, if you agree: 1. "NSTEMI, likely involving the ____ wall & ___ artery"? or "Demand Ischemia (without infarction) of heart due to hypoxemia", or ... 2. "Chronic Hypoxemic Respiratory Failure, needing __L O2 at baseline" 3. If pt is using accessory muscles to breathe & needing more O2 than he used to need --> "Acute Hypoxemic Respiratory Failure evidenced by use of accessory muscles to breathe & now needing __L O2 to maintain O2 sats in the 90s" 4. "Possible pleural effusions, may be due to " 5. Medical necessity: "Not safe for d/c today given continued upward trop I trend, persistent tachypnea, ....", or "I AM CONCERNED about " Status: Appropriate to change to Inpatient status today if attending agrees he is not safe for d/c & isn't expecting transfer to another facility today. Thanks! CK
--- NOTE | 2017-07-26 15:19 | EKG REPORT ---
SEVERITY:- ABNORMAL ECG - SINUS RHYTHM PROBABLE LEFT ATRIAL ABNORMALITY LEFT BUNDLE BRANCH BLOCK : Confirmed by: Pascual Salgado 26-Jul-2017 15:18:24
[2017-07-26] MEDS ORDERED: CLOPIDOGREL BISULFATE 300 MG TABLET PO ONE (15:30)
[2017-07-26] MEDS ORDERED: METOPROLOL SUCCINATE 25 MG TAB.SR.24H PO ONE (15:30)
--- NOTE | 2017-07-26 17:17 | PDOC PROGRESS REPORT ---
Subjective Progress Note for:: 07/26/17 Subjective:: Pt states that he is feeling better. Pt states that he would like to get oxygen for home. Reason For Visit: ACUTE SYNCOPE Physical Exam Vital Signs: Temp Pulse Resp BP Pulse Ox 98.0 F 73 16 131/84 H 98 07/26/17 13:11 07/26/17 16:34 07/26/17 16:34 07/26/17 13:11 07/26/17 16:34 General appearance: PRESENT: no acute distress, thin Head exam: PRESENT: atraumatic, normocephalic Eye exam: PRESENT: conjunctiva pink, EOMI. ABSENT: scleral icterus Ear exam: PRESENT: normal external ear exam Mouth exam: PRESENT: moist, tongue midline Neck exam: ABSENT: carotid bruit, JVD, lymphadenopathy, thyromegaly Respiratory exam: PRESENT: accessory muscle use, decreased breath sounds Cardiovascular exam: PRESENT: RRR. ABSENT: diastolic murmur, rubs, systolic murmur Pulses: PRESENT: normal dorsalis pedis pul Vascular exam: PRESENT: normal capillary refill GI/Abdominal exam: PRESENT: ascites Rectal exam: PRESENT: deferred Extremities exam: PRESENT: full ROM. ABSENT: calf tenderness, clubbing, pedal edema Neurological exam: PRESENT: alert, altered, oriented to person Psychiatric exam: PRESENT: appropriate affect, normal mood. ABSENT: homicidal ideation, suicidal ideation Skin exam: PRESENT: dry, intact, warm. ABSENT: cyanosis, rash Results Laboratory Results: 07/26/17 05:00 07/26/17 05:00 07/26/17 07/26/17 07/26/17 05:00 05:00 05:00 WBC 7.0 RBC 3.90 L Hgb 13.6 Hct 39.5 MCV 101 H MCH 34.8 H MCHC 34.3 RDW 16.3 H Plt Count 205 Seg Neutrophils % 71.7 Lymphocytes % 14.1 Monocytes % 10.6 Eosinophils % 2.3 Basophils % 1.3 Absolute Neutrophils 5.0 Absolute Lymphocytes 1.0 Absolute Monocytes 0.7 Absolute Eosinophils 0.2 Absolute Basophils 0.1 Sodium 143.2 Potassium 4.5 Chloride 113 H Carbon Dioxide 24 Anion Gap 6 BUN 21 H Creatinine 1.43 H Est GFR ( Amer) 59 L Est GFR (Non-Af Amer) 49 L Glucose 89 Calcium 9.7 Magnesium 1.9 Total Bilirubin 0.7 AST 34 ALT 29 Alkaline Phosphatase 59 Total Protein 6.0 L Albumin 3.3 L Triglycerides 118 Cholesterol 152.17 LDL Cholesterol Direct 92 VLDL Cholesterol 24.0 HDL Cholesterol 34 L TSH 1.53 Free T4 1.17 07/25/17 07/26/17 07/26/17 19:00 00:40 05:00 CK-MB (CK-2) 2.14 1.99 1.90 Troponin I 0.081 0.116 0.126 Impressions: Abdomen/Pelvis CT 07/25/17 00:00 IMPRESSION: 1. Cholelithiasis without other CT evidence of acute cholecystitis. 2. Small bilateral pleural effusions. 3. Cardiomegaly. 4. 3.0 cm infrarenal abdominal aortic aneurysm. Continued follow-up in 3 years recommended. Aortobifemoral bypass graft. This exam was performed according to our departmental dose-optimization program, which includes automated exposure control, adjustment of the mA and/or kV according to patient size and/or use of iterative reconstruction technique. Cervical Spine CT 07/25/17 00:00 IMPRESSION: DEGENERATIVE CHANGE OF THE CERVICAL SPINE WITHOUT FRACTURE. 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 Chest CT 07/25/17 00:00 IMPRESSION: Moderate bilateral posteriorly layering effusions. Chest X-Ray 07/25/17 00:00 IMPRESSION: RETROCARDIAC AIRSPACE DISEASE/ PLEURAL EFFUSION MAY BE ACUTE OR CHRONIC. NO ADDITIONAL ACUTE OR SIGNIFICANT FINDINGS. Head CT 07/25/17 00:00 IMPRESSION: EXTENSIVE AREAS OF WHITE MATTER DISEASE PRESUMABLY REPRESENTING CHRONIC MICRO AND MACRO VASCULAR ISCHEMIC CHANGE. NO CT EVIDENCE OF ACUTE INJURY. EVIDENCE OF ACUTE STROKE: NO. Assessment & Plan - Diagnosis (1) Syncope Qualifiers: Syncope type: unspecified Qualified Code(s): R55 - Syncope and collapse Is this a current diagnosis for this admission?: Yes Plan: This patient 2 Echo pending. His syncope is most likely result of patient being hypoxic due to him not wearing his oxygen. (2) NSTEMI (non-ST elevated myocardial infarction) Is this a current diagnosis for this admission?: Yes Plan: Appreciate Cardiology's assistance. Agree with recommendations by cardiology. (3) COPD (chronic obstructive pulmonary disease) Qualifiers: COPD type: unspecified COPD Qualified Code(s): J44.9 - Chronic obstructive pulmonary disease, unspecified Is this a current diagnosis for this admission?: Yes Plan: Trying to arrange portable O2 for patient. (4) Hypertension Qualifiers: Hypertension type: essential hypertension Qualified Code(s): I10 - Essential (primary) hypertension Is this a current diagnosis for this admission?: Yes Plan: Pt on metoprolol and ramipril (5) HLD (hyperlipidemia) Is this a current diagnosis for this admission?: Yes Plan: Statin (6) CKD (chronic kidney disease) stage 3, GFR 30-59 ml/min Is this a current diagnosis for this admission?: Yes Plan: Will continue to monitor (7) DVT prophylaxis Is this a current diagnosis for this admission?: Yes Plan: SCDs - Time Time Spent with patient: 15-24 minutes
--- NOTE | 2017-07-26 18:44 | PDOC PROGRESS REPORT ---
Subjective Progress Note for:: 07/26/17 Subjective:: Patient seems to be doing better with gradual improvement. Patient still has shortness of breath. He is wearing oxygen. Pt is denying any chest arm or neck discomfort. Patient denying any PND, orthopnea. Patient denied any sustained palpitations, dizziness, syncope, near syncope. Patient denying any fever chills. Patient denying any other significant discomfort. Patient is maintaining sinus rhythm. Frequent ventricular ectopies are noted. Review of systems: Rest review of systems negative. Medications: Medications have been reviewed. Reason For Visit: NSTEMI Physical Exam Vital Signs: Temp Pulse Resp BP Pulse Ox 97.6 F 66 16 128/69 H 94 07/26/17 17:09 07/26/17 17:09 07/26/17 16:34 07/26/17 17:09 07/26/17 17:09 Exam: GENERAL: well-nourished and in no acute distress. Alert and oriented x3 HEAD: Atraumatic, normocephalic. EYES: Pupils equal round and reactive to light, extraocular movements intact, sclera anicteric, conjunctiva are normal. ENT: TMs normal, nares patent, oropharynx clear without exudates. Moist mucous membranes. No oral ulcerations or bleeding gums noted NECK: supple without lymphadenopathy. Trachea is central. No cervical or axillary lymphadenopathy noted. Carotids are 2+, JVD WNL LUNGS: Respiration seems nonlabored, no significant accessory muscle action noted. Mild bilateral scattered wheezes rales or rhonchi noted. No significant dullness noted on percussion. CHEST: Palpation of the chest wall shows no significant chest wall tenderness. No other significant abnormalities noted. 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 ABDOMEN: Soft, no significant tenderness appreciated, normoactive bowel sounds. No guarding, no rebound. No rigidity noted . No masses appreciated. EXTREMITIES: Pedal pulses are 1-2+, no calf tenderness noted. No clubbing or cyanosis.trace pedal edema noted NEUROLOGICAL: Focused neurological exam showed no significant neurologic deficit. Normal speech, no focal weakness appreciated. PSYCH: Normal mood, normal affect. Judgment and insight within normal limits. SKIN: No significant ecchymosis, rash, ulcerations or signs of pruritus noted. MUSCULOSKELETAL EXAM: No significant joint swelling noted. Results EKG Comments: Twelve-lead EKG shows sinus rhythm, left bundle branch block pattern. Telemetry strip shows sinus rhythm with frequent APCs and VPCs Impressions: Abdomen/Pelvis CT 07/25/17 00:00 IMPRESSION: 1. Cholelithiasis without other CT evidence of acute cholecystitis. 2. Small bilateral pleural effusions. 3. Cardiomegaly. 4. 3.0 cm infrarenal abdominal aortic aneurysm. Continued follow-up in 3 years recommended. Aortobifemoral bypass graft. This exam was performed according to our departmental dose-optimization program, which includes automated exposure control, adjustment of the mA and/or kV according to patient size and/or use of iterative reconstruction technique. Cervical Spine CT 07/25/17 00:00 IMPRESSION: DEGENERATIVE CHANGE OF THE CERVICAL SPINE WITHOUT FRACTURE. 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 Chest CT 07/25/17 00:00 IMPRESSION: Moderate bilateral posteriorly layering effusions. Chest X-Ray 07/25/17 00:00 IMPRESSION: RETROCARDIAC AIRSPACE DISEASE/ PLEURAL EFFUSION MAY BE ACUTE OR CHRONIC. NO ADDITIONAL ACUTE OR SIGNIFICANT FINDINGS. Head CT 07/25/17 00:00 IMPRESSION: EXTENSIVE AREAS OF WHITE MATTER DISEASE PRESUMABLY REPRESENTING CHRONIC MICRO AND MACRO VASCULAR ISCHEMIC CHANGE. NO CT EVIDENCE OF ACUTE INJURY. EVIDENCE OF ACUTE STROKE: NO. Assessment & Plan - Diagnosis (1) Syncope Qualifiers: Syncope type: unspecified Qualified Code(s): R55 - Syncope and collapse Is this a current diagnosis for this admission?: Yes (2) Coronary artery disease Qualifiers: Coronary Disease-Associated Artery/Lesion type: unspecified vessel or lesion type [place] vs. transplanted heart: [place] heart Associated angina: angina presence unspecified Qualified Code(s): I25.10 - Atherosclerotic heart disease of [place] coronary artery without angina pectoris Is this a current diagnosis for this admission?: Yes (3) CKD (chronic kidney disease) stage 3, GFR 30-59 ml/min Is this a current diagnosis for this admission?: Yes (4) COPD (chronic obstructive pulmonary disease) Qualifiers: COPD type: unspecified COPD Qualified Code(s): J44.9 - Chronic obstructive pulmonary disease, unspecified Is this a current diagnosis for this admission?: Yes (5) HLD (hyperlipidemia) Is this a current diagnosis for this admission?: Yes (6) Hypertension Qualifiers: Hypertension type: essential hypertension Qualified Code(s): I10 - Essential (primary) hypertension Is this a current diagnosis for this admission?: Yes - Notes Notes: Syncope: Exact etiology not clear but could be related to cardiac dysrhythmia at patient's age. Possible orthostatic hypotension, possibly vasovagal, hypoglycemia transient, seizure disorder, hypoxemia etc. in the differential diagnosis. Patient will benefit from cardiac monitoring while inpatient and also as an outpatient. Patient will need a 2D echocardiogram. 2D echocardiogram unfortunately could not be performed yet. Have started patient on small dose of beta-beth, metoprolol XL at 12.5 mg p.o. twice daily. Coronary artery disease: Currently symptomatically stable without any chest pain. Cardiac enzymes came back suggestive for non-STEMI. Elderly can have silent NE. Have started patient on Ranexa 500 mg p.o. twice daily. Have also started patient on high potency statin therapy. Placed patient on Plavix load and maintenance dose. Did not place patient on heparin as there was some note of possible cardiac compression in this patient yesterday. COPD: Patient seems to have significant emphysema based on exam. Continue bronchodilator therapy. Non-STEMI: Patient ruled in for this by cardiac enzymes. Because of patient's severe COPD, will recommend medical management as patient may not be a candidate for repeat bypass surgery. Currently patient chest pain-free. Will consider stress test prior to discharge if patient's pulmonary condition improves. Chronic kidney disease: Currently stable. Hypertension: Currently stable. Dyslipidemia: Continue statin therapy. - Time Time with patient: Greater than 35 minutes - CODE STATUS was discussed, patient remains full code. Surrogate decision-maker unchanged. Multiple medical problems were addressed. More than 50% of the time spent coordinating care, discussing management plans with involved caregivers. Management plans discussed with involved personnels. Medical decision making was of moderate to high complexity, patient's has multiple comorbidities. Medications reviewed and adjusted accordingly: Yes
[2017-07-26] MEDS: ATORVASTATIN CALCIUM 40 MG TABLET PO SCH (22:10)
[2017-07-26] MEDS: RANOLAZINE 500 MG TAB.SR.12H PO SCH (22:10)
[2017-07-27] MEDS: LANSOPRAZOLE 30 MG TAB.RAP.DR PO SCH (05:37)
[2017-07-27 08:00] LABS: TROPONIN I 0.126 ng/mL
--- NOTE | 2017-07-27 09:29 | EKG REPORT ---
SEVERITY:- ABNORMAL ECG - SINUS RHYTHM PROBABLE LEFT ATRIAL ABNORMALITY LEFT BUNDLE BRANCH BLOCK : Confirmed by: Pascual Salgado 27-Jul-2017 09:28:00
[2017-07-27] MEDS: RANOLAZINE 500 MG TAB.SR.12H PO SCH ×2 (09:51→21:27)
[2017-07-27] MEDS: METOPROLOL SUCCINATE 25 MG TAB.SR.24H PO SCH (09:52)
[2017-07-27] MEDS: CLOPIDOGREL BISULFATE 75 MG TABLET PO SCH (09:52)
[2017-07-27] MEDS: RAMIPRIL 1.25 MG CAPSULE PO SCH (09:52)
--- NOTE | 2017-07-27 17:47 | PDOC PROGRESS REPORT ---
Subjective Progress Note for:: 08/03/17 Subjective:: The patient is resting in his bed. He has had no further complaints of chest pain and feels like he is back to his baseline. He states he feels much better after wearing oxygen. He admits that he probably needs to use it at home. He denies fever chills. No chest pain, shortness of breath or cough. No nausea, vomiting or diarrhea. No dysuria, frequency or hematuria Reason For Visit: NSTEMI Physical Exam Vital Signs: Temp Pulse Resp BP Pulse Ox 97.2 F 73 16 124/92 H 94 07/27/17 08:18 07/27/17 14:00 07/27/17 11:07 07/27/17 08:18 07/27/17 11:07 Intake & Output 07/26/17 07/27/17 07/28/17 06:59 06:59 06:59 Intake Total 10 Balance 10 Weight 51.8 kg General appearance: PRESENT: no acute distress, thin, other - Somewhat cachectic Head exam: PRESENT: atraumatic, other - He has some bitemporal wasting Eye exam: PRESENT: conjunctiva pink, EOMI, PERRLA. ABSENT: scleral icterus Ear exam: PRESENT: normal external ear exam Mouth exam: PRESENT: moist, tongue midline Neck exam: ABSENT: carotid bruit, JVD, lymphadenopathy, thyromegaly Respiratory exam: PRESENT: clear to auscultation huong, decreased breath sounds. ABSENT: rales, rhonchi, wheezes Cardiovascular exam: PRESENT: RRR. ABSENT: diastolic murmur, rubs, systolic murmur Pulses: PRESENT: normal dorsalis pedis pul GI/Abdominal exam: PRESENT: normal bowel sounds, soft. ABSENT: distended, guarding, mass, organolmegaly, rebound, tenderness Rectal exam: PRESENT: deferred Extremities exam: PRESENT: full ROM. ABSENT: calf tenderness, clubbing, pedal edema Neurological exam: PRESENT: alert, awake, oriented to person, oriented to place , oriented to time, oriented to situation, CN II-XII grossly intact. ABSENT: motor sensory deficit Psychiatric exam: PRESENT: appropriate affect, normal mood. ABSENT: homicidal ideation, suicidal ideation Skin exam: PRESENT: dry, intact, warm. ABSENT: cyanosis, rash Results Impressions: Abdomen/Pelvis CT 07/25/17 00:00 IMPRESSION: 1. Cholelithiasis without other CT evidence of acute cholecystitis. 2. Small bilateral pleural effusions. 3. Cardiomegaly. 4. 3.0 cm infrarenal abdominal aortic aneurysm. Continued follow-up in 3 years recommended. Aortobifemoral bypass graft. This exam was performed according to our departmental dose-optimization program, which includes automated exposure control, adjustment of the mA and/or kV according to patient size and/or use of iterative reconstruction technique. Cervical Spine CT 07/25/17 00:00 IMPRESSION: DEGENERATIVE CHANGE OF THE CERVICAL SPINE WITHOUT FRACTURE. 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 Chest CT 07/25/17 00:00 IMPRESSION: Moderate bilateral posteriorly layering effusions. Chest X-Ray 07/25/17 00:00 IMPRESSION: RETROCARDIAC AIRSPACE DISEASE/ PLEURAL EFFUSION MAY BE ACUTE OR CHRONIC. NO ADDITIONAL ACUTE OR SIGNIFICANT FINDINGS. Head CT 07/25/17 00:00 IMPRESSION: EXTENSIVE AREAS OF WHITE MATTER DISEASE PRESUMABLY REPRESENTING CHRONIC MICRO AND MACRO VASCULAR ISCHEMIC CHANGE. NO CT EVIDENCE OF ACUTE INJURY. EVIDENCE OF ACUTE STROKE: NO. Assessment & Plan - Diagnosis (1) Syncope Is this a current diagnosis for this admission?: Yes Plan: Likely cardiogenic. He is being followed closely by cardiology and likely will need monitoring as an outpatient (2) NSTEMI (non-ST elevated myocardial infarction) Is this a current diagnosis for this admission?: Yes Plan: Echocardiogram is pending. We await further recommendations from cardiology (3) COPD (chronic obstructive pulmonary disease) Qualifiers: COPD type: unspecified COPD Qualified Code(s): J44.9 - Chronic obstructive pulmonary disease, unspecified Is this a current diagnosis for this admission?: Yes Plan: He has oxygen dependent COPD but had not been wearing his oxygen since he quit smoking. He is encouraged to do so. He already has oxygen in the home. He will continue bronchodilators. He does not seem to be having an acute exacerbation (4) Hypertension Qualifiers: Hypertension type: essential hypertension Qualified Code(s): I10 - Essential (primary) hypertension Is this a current diagnosis for this admission?: Yes Plan: Stable (5) HLD (hyperlipidemia) Is this a current diagnosis for this admission?: Yes Plan: Stable (6) CKD (chronic kidney disease) stage 3, GFR 30-59 ml/min Is this a current diagnosis for this admission?: Yes Plan: Certainly this prohibits him having a cardiac catheterization. Medical management for his heart issues. His kidney function is stable - Time Time Spent with patient: 25-34 minutes - Inpatient Certification Medical Necessity: Need Close Monitoring Due to Risk of Patient Decompensation, Other - Inpatient hospitalization remains necessary. The patient is awaiting final echocardiogram results. Dr. Salgado his indicated that he may need stress testing prior to leaving the hospital. Overall he is looking good and I suspect he can be discharged home in the next 24-48 hours after cardiology makes the recommendations.
--- NOTE | 2017-07-27 19:30 | PDOC PROGRESS REPORT ---
Subjective Progress Note for:: 07/27/17 Subjective:: Patient seems to be doing better with gradual improvement. Patient still has shortness of breath. He is wearing oxygen. Pt is denying any chest arm or neck discomfort. Patient denying any PND, orthopnea. Patient denied any sustained palpitations, dizziness, syncope, near syncope. Patient denying any fever chills. Patient denying any other significant discomfort. Patient is maintaining sinus rhythm. Frequent ventricular ectopies are noted. Review of systems: Rest review of systems negative. Medications: Medications have been reviewed. Reason For Visit: NSTEMI Physical Exam Vital Signs: Temp Pulse Resp BP Pulse Ox 98.1 F 69 16 121/78 98 07/27/17 16:16 07/27/17 16:16 07/27/17 16:16 07/27/17 16:16 07/27/17 16:16 Intake & Output 07/26/17 07/27/17 07/28/17 06:59 06:59 06:59 Intake Total 10 20 Balance 10 20 Weight 51.8 kg Exam: GENERAL: well-nourished and in no acute distress. Alert and oriented x3 HEAD: Atraumatic, normocephalic. EYES: Pupils equal round and reactive to light, extraocular movements intact, sclera anicteric, conjunctiva are normal. ENT: TMs normal, nares patent, oropharynx clear without exudates. Moist mucous membranes. No oral ulcerations or bleeding gums noted NECK: supple without lymphadenopathy. Trachea is central. No cervical or axillary lymphadenopathy noted. Carotids are 2+, JVD WNL LUNGS: Respiration seems nonlabored, no significant accessory muscle action noted. Mild scattered bilateral wheezes rales or rhonchi noted. No significant dullness noted on percussion. CHEST: Palpation of the chest wall shows no significant chest wall tenderness. No other significant abnormalities noted. 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 ABDOMEN: Soft, no significant tenderness appreciated, normoactive bowel sounds. No guarding, no rebound. No rigidity noted . No masses appreciated. EXTREMITIES: Pedal pulses are 1-2+, no calf tenderness noted. No clubbing or cyanosis. Negative pedal edema noted NEUROLOGICAL: Focused neurological exam showed no significant neurologic deficit. Normal speech, no focal weakness appreciated. PSYCH: Normal mood, normal affect. Judgment and insight within normal limits. SKIN: No significant ecchymosis, rash, ulcerations or signs of pruritus noted. MUSCULOSKELETAL EXAM: No significant joint swelling noted. Results EKG Comments: Telemetry strip shows sinus rhythm with frequent APCs and VPCs. Impressions: Abdomen/Pelvis CT 07/25/17 00:00 IMPRESSION: 1. Cholelithiasis without other CT evidence of acute cholecystitis. 2. Small bilateral pleural effusions. 3. Cardiomegaly. 4. 3.0 cm infrarenal abdominal aortic aneurysm. Continued follow-up in 3 years recommended. Aortobifemoral bypass graft. This exam was performed according to our departmental dose-optimization program, which includes automated exposure control, adjustment of the mA and/or kV according to patient size and/or use of iterative reconstruction technique. Cervical Spine CT 07/25/17 00:00 IMPRESSION: DEGENERATIVE CHANGE OF THE CERVICAL SPINE WITHOUT FRACTURE. 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 Chest CT 07/25/17 00:00 IMPRESSION: Moderate bilateral posteriorly layering effusions. Chest X-Ray 07/25/17 00:00 IMPRESSION: RETROCARDIAC AIRSPACE DISEASE/ PLEURAL EFFUSION MAY BE ACUTE OR CHRONIC. NO ADDITIONAL ACUTE OR SIGNIFICANT FINDINGS. Head CT 07/25/17 00:00 IMPRESSION: EXTENSIVE AREAS OF WHITE MATTER DISEASE PRESUMABLY REPRESENTING CHRONIC MICRO AND MACRO VASCULAR ISCHEMIC CHANGE. NO CT EVIDENCE OF ACUTE INJURY. EVIDENCE OF ACUTE STROKE: NO. Assessment & Plan - Diagnosis (1) Syncope Qualifiers: Syncope type: unspecified Qualified Code(s): R55 - Syncope and collapse Is this a current diagnosis for this admission?: Yes (2) Coronary artery disease Qualifiers: Coronary Disease-Associated Artery/Lesion type: unspecified vessel or lesion type [place] vs. transplanted heart: [place] heart Associated angina: angina presence unspecified Qualified Code(s): I25.10 - Atherosclerotic heart disease of [place] coronary artery without angina pectoris Is this a current diagnosis for this admission?: Yes (3) CKD (chronic kidney disease) stage 3, GFR 30-59 ml/min Is this a current diagnosis for this admission?: Yes (4) COPD (chronic obstructive pulmonary disease) Qualifiers: COPD type: unspecified COPD Qualified Code(s): J44.9 - Chronic obstructive pulmonary disease, unspecified Is this a current diagnosis for this admission?: Yes (5) HLD (hyperlipidemia) Is this a current diagnosis for this admission?: Yes (6) Hypertension Qualifiers: Hypertension type: essential hypertension Qualified Code(s): I10 - Essential (primary) hypertension Is this a current diagnosis for this admission?: Yes - Notes Notes: Syncope: Exact etiology not clear but could be related to cardiac dysrhythmia at patient's age. Possible orthostatic hypotension, possibly vasovagal, hypoglycemia transient, seizure disorder, hypoxemia etc. in the differential diagnosis. Patient will benefit from cardiac monitoring while inpatient and also as an outpatient. Patient will need a 2D echocardiogram. 2D echocardiogram unfortunately has not yet been performed. Have started patient on small dose of beta-beth, metoprolol XL at 12.5 mg p.o. twice daily. Coronary artery disease: Currently symptomatically stable without any chest pain. Cardiac enzymes came back suggestive for non-STEMI. Elderly can have silent [place]. Have started patient on Ranexa 500 mg p.o. twice daily. Have also started patient on high potency statin therapy. Placed patient on Plavix load and maintenance dose. Did not place patient on heparin as there was some note of possible cardiac compression in in the field in this patient. Patient seems stable on current regimen. COPD: Patient seems to have significant emphysema based on exam. Continue bronchodilator therapy. Non-STEMI: Patient ruled in for this by cardiac enzymes. Because of patient's severe COPD, will recommend medical management as patient may not be a candidate for repeat bypass surgery. Currently patient chest pain-free. Will consider stress test prior to discharge if patient's pulmonary condition improves. Chronic kidney disease: Currently stable. Hypertension: Currently stable. Dyslipidemia: Continue statin therapy. - Time Time with patient: Greater than 35 minutes - CODE STATUS was discussed, patient remains full code. Surrogate decision-maker unchanged. Multiple medical problems were addressed. More than 50% of the time spent coordinating care, discussing management plans with involved caregivers. Management plans discussed with involved personnels. Medical decision making was of moderate to high complexity, patient's has multiple comorbidities. Medications reviewed and adjusted accordingly: Yes
[2017-07-27] MEDS: ATORVASTATIN CALCIUM 40 MG TABLET PO SCH (21:27)
[2017-07-28 04:38] LABS: ABSOLUTE BASOPHILS # (AUTO) 0.1 10^3/uL (0.0-0.2); ABSOLUTE EOSINOPHILS # (AUTO) 0.2 10^3/uL (0.0-0.6); ABSOLUTE LYMPHOCYTES (AUTO) 0.8 10^3/uL (0.5-4.7); ABSOLUTE MONOCYTES (AUTO) 0.7 10^3/uL (0.1-1.4); BASOPHILS % (AUTO) 1.4 % (0-2); EOSINOPHILS % (AUTO) 3.6 % (0-6); HEMATOCRIT 39.7 % (37.9-51.0); HEMOGLOBIN 13.2 g/dL (13.5-17.0); LYMPHOCYTES % (AUTO) 13.2 % (13-45); MEAN CORPUSCULAR HEMOGLOBIN 33.7 pg (27.0-33.4); MEAN CORPUSCULAR HGB CONC 33.2 g/dL (32.0-36.0); MEAN CORPUSCULAR VOLUME 101 fl (80-97); MONOCYTES % (AUTO) 11.7 % (3-13); PLATELET COUNT 183 10^3/uL (150-450); RED BLOOD COUNT 3.92 10^6/uL (4.35-5.55); RED CELL DISTRIBUTION WIDTH 16.5 % (11.5-14.0); SEGMENTED NEUTROPHILS % (AUTO) 70.1 % (42-78); TOTAL CELLS COUNTED % (AUTO) 100 %; WHITE BLOOD COUNT 5.8 10^3/uL (4.0-10.5)
[2017-07-28 04:55] LABS: ANION GAP 9 (5-19); BLOOD UREA NITROGEN 22 mg/dL (7-20); CALCIUM 10.1 mg/dL (8.4-10.2); CARBON DIOXIDE 23 mmol/L (22-30); CHLORIDE 109 mmol/L (98-107); GLUCOSE 97 mg/dL (75-110); MAGNESIUM 1.7 mg/dL (1.6-2.3); PHOSPHORUS 3.4 mg/dL (2.5-4.5); SODIUM 140.8 mmol/L (137-145)
[2017-07-28] MEDS: LANSOPRAZOLE 30 MG TAB.RAP.DR PO SCH (05:49)
[2017-07-28] MEDS: RANOLAZINE 500 MG TAB.SR.12H PO SCH ×2 (09:45→22:57)
[2017-07-28] MEDS: CLOPIDOGREL BISULFATE 75 MG TABLET PO SCH (09:45)
[2017-07-28] MEDS: RAMIPRIL 1.25 MG CAPSULE PO SCH (09:45)
[2017-07-28] MEDS: METOPROLOL SUCCINATE 25 MG TAB.SR.24H PO SCH (09:45)
--- NOTE | 2017-07-28 11:55 | RADIOLOGY REPORT (SQ) ---
EXAM DESCRIPTION: CAROTID DOPPLER COMPLETED DATE/TIME: 07/28/2017 11:38 am REASON FOR STUDY: Syncope COMPARISON: None. TECHNIQUE: Grayscale ultrasound, Doppler velocity and spectra, and color Doppler images acquired of the extra-cranial carotid and vertebral arteries. Images stored on PACS. LIMITATIONS: None. FINDINGS: RIGHT CAROTID CCA Velocities: Within normal limits. ICA Velocities There is occlusion of the right internal carotid artery. LEFT CAROTID CCA Velocities: Within normal limits. ICA Velocities There is occlusion of the left internal carotid artery. VERTEBRAL ARTERIES: Antegrade flow. Normal waveforms. SUBCLAVIAN ARTERIES: No finding. OTHER: No other significant finding. 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 Other findings as noted above. COMMENT: Quality ID #[id number]: Velocity criteria are extrapolated from the diameter data as defined by t he Society of Radiologists in Ultrasound Consensus Conference. Radiology 2003: 229; 340-346. TECHNICAL DOCUMENTATION: JOB ID: [id number] [employer]- All Rights Reserved
--- NOTE | 2017-07-28 15:57 | PDOC PROGRESS REPORT ---
Subjective Progress Note for:: 07/28/17 Subjective:: Patient is currently hospitalized for syncope as well as a non-ST elevation myocardial infarction. The patient states that he is feeling better. He still has some outstanding testing to be done. Cardiology is following the patient. One thing that has been identified is that the patient should be wearing his oxygen as prescribed. He was not wearing it prior to this admission. The patient has carotid Dopplers a do show disease but this is not quantified on the results. Reason For Visit: NSTEMI Physical Exam Vital Signs: Temp Pulse Resp BP Pulse Ox 97.8 F 63 18 132/86 H 97 07/28/17 12:33 07/28/17 14:00 07/28/17 12:33 07/28/17 12:33 07/28/17 12:33 Intake & Output 07/27/17 07/28/17 07/29/17 06:59 06:59 06:59 Intake Total 10 1225 Balance 10 1225 Weight 51.8 kg 51.8 kg Additional comments: The patient appears much much older than his stated age. He is thin and appears to be very frail. His cognition and mentation are appropriate. His facial appearance is unremarkable. His lungs were actually clear today without rales or wheezing. His cardiac exam is regular without murmurs, gallops or rubs. The abdomen is soft and flat. Bowel sounds are present in the lower quadrants. No guarding or rebound noted. No hernias or masses are noted. The lower extremities are warm to touch without edema. Results Laboratory Results: 07/28/17 04:20 07/28/17 04:20 07/28/17 07/28/17 04:20 04:20 WBC 5.8 RBC 3.92 L Hgb 13.2 L Hct 39.7 MCV 101 H MCH 33.7 H MCHC 33.2 RDW 16.5 H Plt Count 183 Seg Neutrophils % 70.1 Lymphocytes % 13.2 Monocytes % 11.7 Eosinophils % 3.6 Basophils % 1.4 Absolute Neutrophils 4.0 Absolute Lymphocytes 0.8 Absolute Monocytes 0.7 Absolute Eosinophils 0.2 Absolute Basophils 0.1 Sodium 140.8 Potassium 5.0 Chloride 109 H Carbon Dioxide 23 Anion Gap 9 BUN 22 H Creatinine 1.56 H Est GFR ( Amer) 54 L Est GFR (Non-Af Amer) 44 L Glucose 97 Calcium 10.1 Phosphorus 3.4 Magnesium 1.7 Impressions: Abdomen/Pelvis CT 07/25/17 00:00 IMPRESSION: 1. Cholelithiasis without other CT evidence of acute cholecystitis. 2. Small bilateral pleural effusions. 3. Cardiomegaly. 4. 3.0 cm infrarenal abdominal aortic aneurysm. Continued follow-up in 3 years recommended. Aortobifemoral bypass graft. This exam was performed according to our departmental dose-optimization program, which includes automated exposure control, adjustment of the mA and/or kV according to patient size and/or use of iterative reconstruction technique. Cervical Spine CT 07/25/17 00:00 IMPRESSION: DEGENERATIVE CHANGE OF THE CERVICAL SPINE WITHOUT FRACTURE. 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 Chest CT 07/25/17 00:00 IMPRESSION: Moderate bilateral posteriorly layering effusions. Chest X-Ray 07/25/17 00:00 IMPRESSION: RETROCARDIAC AIRSPACE DISEASE/ PLEURAL EFFUSION MAY BE ACUTE OR CHRONIC. NO ADDITIONAL ACUTE OR SIGNIFICANT FINDINGS. Head CT 07/25/17 00:00 IMPRESSION: EXTENSIVE AREAS OF WHITE MATTER DISEASE PRESUMABLY REPRESENTING CHRONIC MICRO AND MACRO VASCULAR ISCHEMIC CHANGE. NO CT EVIDENCE OF ACUTE INJURY. EVIDENCE OF ACUTE STROKE: NO. Carotid Doppler Study 07/28/17 00:00 IMPRESSION: There is occlusion of both internal carotid arteries as noted above. Other findings as noted above. Assessment & Plan - Diagnosis (1) COPD (chronic obstructive pulmonary disease) Qualifiers: COPD type: unspecified COPD Qualified Code(s): J44.9 - Chronic obstructive pulmonary disease, unspecified Is this a current diagnosis for this admission?: Yes (2) NSTEMI (non-ST elevated myocardial infarction) Is this a current diagnosis for this admission?: Yes (3) Syncope Qualifiers: Syncope type: unspecified Qualified Code(s): R55 - Syncope and collapse Is this a current diagnosis for this admission?: Yes (4) CKD (chronic kidney disease) stage 3, GFR 30-59 ml/min Is this a current diagnosis for this admission?: Yes (5) HLD (hyperlipidemia) Is this a current diagnosis for this admission?: Yes (6) Hypertension Qualifiers: Hypertension type: essential hypertension Qualified Code(s): I10 - Essential (primary) hypertension Is this a current diagnosis for this admission?: Yes - Time Time Spent with patient: 15-24 minutes - Inpatient Certification Medical Necessity: Significant Comorbidiites Make Outpatient Treatment Too Risky , Need Close Monitoring Due to Risk of Patient Decompensation, Risk of Complication if Not Cared For in Hospital - Plan Summary Plan Summary: 1. We have encouraged the patient to wear his oxygen for his underlying COPD. 2. We will continue medical management for the non-ST elevation myocardial infarction. Echocardiogram was performed. Results are pending. We appreciate cardiology's involvement. Charge on this patient is pending further recommendations from cardiology which could include stress testing. 3. Syncope unfortunately we do not have quantification of the disease in the carotid arteries. I will ask radiology to reread this. 4. Chronic kidney disease: Stable 5. Hyperlipidemia: Continue medical management 6. Hypertension: Continue medical management
--- NOTE | 2017-07-28 18:50 | XCELERA REPORT ---
[address] [address] Transthoracic Echocardiogram Report Name: BRIGITTE KRAMER Age: 71 yrs Gender: Male : 1945 Patient Status: Inpatient Patient Location: [address] [place] [address] Study Date: 07/28/2017 08:29 AM Height: 69 in Weight: 128 lb BSA: 1.7 m2 Procedure: A complete two-dimensional transthoracic echocardiogram was performed (2D, M-mode, spectral and color flow Doppler). The study was technically difficult with many images being suboptimal in quality. Reason For Study: Syncope Ordering Physician: ALECIA GREEN Performed By: Diana Spencer Interpretation Summary Left ventricular systolic function is moderate to severely reduced. The Ejection Fraction estimate is 30-35% Doppler measurements suggest pseudonormalized left ventricular relaxation, which is associated with grade II/IV or mild to moderate diastolic dysfunction Wall motion cannot be accurately commented on, but no definite regional wall motion abnormalities noted. The left ventricle is grossly normal size. The right ventricle is mildly dilated. The right ventricular systolic function is normal. The right atrium is normal in size The left atrium is mildly dilated. There is a mild to moderate amount of mitral regurgitation There is no mitral valve stenosis. There is no aortic valve stenosis There is a mild amount of aortic regurgitation The aortic root is not well visualized but is probably normal size. The inferior vena cava appeared normal and decreased > 50% with respiration (RAP 5-10 mmHg) There is no pericardial effusion. The pulmonic valve is not well visualized. MMode/2D Measurements & Calculations RVDd: 3.5 cm LVIDd: 5.5 cm FS: 7.2 % Ao root diam: IVSd: 0.91 cm LVIDs: 5.1 cm EDV(Teich): 3.2 cm LVPWd: 0.88 cm 146.4 ml Ao root area: ESV(Teich): 123.2 ml 7.9 cm2 EF(Teich): 15.9 % LA dimension: 4.7 cm LVLd ap4: 9.0 cm SV(MOD-sp4): EDV(MOD-sp4): 29.0 ml 133.0 ml LVLs ap4: 8.0 cm ESV(MOD-sp4): 104.0 ml EF(MOD-sp4): 21.8 % Doppler Measurements & Calculations MV E max cierra: MV P1/2t max cierra: Ao V2 max: AI max cierra: 101.7 cm/sec 102.7 cm/sec 168.3 cm/sec 339.3 cm/sec MV A max cierra: MV P1/2t: 55.5 msec Ao max PG: AI max P.5 cm/sec MVA(P1/2t): 4.0 cm2 11.3 mmHg 46.1 mmHg MV E/A: 1.4 MV dec slope: AI dec slope: 542.2 cm/sec2 162.7 cm/sec2 MV dec time: AI P1/2t: 0.20 sec 611.0 msec LV V1 max PG: PA V2 max: PI end-d cierra: TR max cierra: 2.0 mmHg 81.4 cm/sec 237.5 cm/sec 286.6 cm/sec LV V1 max: PA max P.7 mmHg TR max P.6 cm/sec 32.8 mmHg Left Ventricle The left ventricle is grossly normal size. Left ventricular systolic function is moderate to severely reduced. The Ejection Fraction estimate is 30-35%. Doppler measurements suggest pseudonormalized left ventricular relaxation, which is associated with grade II/IV or mild to moderate diastolic dysfunction. Wall motion cannot be accurately commented on, but no definite regional wall motion abnormalities noted. Right Ventricle The right ventricle is mildly dilated. There is normal right ventricular wall thickness. The right ventricular systolic function is normal. Atria The right atrium is normal in size. The left atrium is mildly dilated. Interarterial septum not well visualized and not well dopplered. Cannot comment on ASD/PFO presence. Mitral Valve There is mild to moderate mitral leaflet calcification. There is no mitral valve stenosis. There is a mild to moderate amount of mitral regurgitation. Aortic Valve The aortic valve is mildly calcified. There is no aortic valve stenosis. There is a mild amount of aortic regurgitation. Tricuspid Valve The tricuspid valve is not well visualized, but is grossly normal. There is no tricuspid stenosis. There is a mild amount of tricuspid regurgitation. Pulmonic Valve The pulmonic valve is not well visualized. Great Vessels The aortic root is not well visualized but is probably normal size. The inferior vena cava appeared normal and decreased > 50% with respiration (RAP 5-10 mmHg). Effusions There is no pericardial effusion. : ALECIA GREEN Shyamal
--- NOTE | 2017-07-28 19:35 | PDOC PROGRESS REPORT ---
Subjective Progress Note for:: 07/28/17 Subjective:: Patient seems to be doing better with gradual improvement. Patient still has shortness of breath. He is wearing oxygen. Pt is denying any chest arm or neck discomfort. Patient denying any PND, orthopnea. Patient denied any sustained palpitations, dizziness, syncope, near syncope. Patient denying any fever chills. Patient denying any other significant discomfort. Patient is maintaining sinus rhythm. Frequent ventricular ectopies are noted. Review of systems: Rest review of systems negative. Medications: Medications have been reviewed. Reason For Visit: NSTEMI Physical Exam Vital Signs: Temp Pulse Resp BP Pulse Ox 97.7 F 70 18 128/80 H 96 07/28/17 15:52 07/28/17 15:52 07/28/17 15:52 07/28/17 15:52 07/28/17 15:52 Intake & Output 07/27/17 07/28/17 07/29/17 06:59 06:59 06:59 Intake Total 10 1225 834 Balance 10 1225 834 Weight 51.8 kg 51.8 kg Exam: GENERAL: well-nourished and in no acute distress. Alert and oriented x3 HEAD: Atraumatic, normocephalic. EYES: Pupils equal round and reactive to light, extraocular movements intact, sclera anicteric, conjunctiva are normal. ENT: TMs normal, nares patent, oropharynx clear without exudates. Moist mucous membranes. No oral ulcerations or bleeding gums noted NECK: supple without lymphadenopathy. Trachea is central. No cervical or axillary lymphadenopathy noted. Carotids are 2+, JVD WNL LUNGS: Respiration seems nonlabored, no significant accessory muscle action noted. Bilateral scattered wheezing, rales or rhonchi noted. No significant dullness noted on percussion. CHEST: Palpation of the chest wall shows no significant chest wall tenderness. No other significant abnormalities noted. 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 ABDOMEN: Soft, no significant tenderness appreciated, normoactive bowel sounds. No guarding, no rebound. No rigidity noted . No masses appreciated. EXTREMITIES: Pedal pulses are 1-2+, no calf tenderness noted. No clubbing or cyanosis.trace to 1+ pedal edema noted NEUROLOGICAL: Focused neurological exam showed no significant neurologic deficit. Normal speech, no focal weakness appreciated. PSYCH: Normal mood, normal affect. Judgment and insight within normal limits. SKIN: No significant ecchymosis, rash, ulcerations or signs of pruritus noted. MUSCULOSKELETAL EXAM: No significant joint swelling noted. Results Laboratory Results: 07/28/17 04:20 07/28/17 04:20 07/28/17 07/28/17 04:20 04:20 WBC 5.8 RBC 3.92 L Hgb 13.2 L Hct 39.7 MCV 101 H MCH 33.7 H MCHC 33.2 RDW 16.5 H Plt Count 183 Seg Neutrophils % 70.1 Lymphocytes % 13.2 Monocytes % 11.7 Eosinophils % 3.6 Basophils % 1.4 Absolute Neutrophils 4.0 Absolute Lymphocytes 0.8 Absolute Monocytes 0.7 Absolute Eosinophils 0.2 Absolute Basophils 0.1 Sodium 140.8 Potassium 5.0 Chloride 109 H Carbon Dioxide 23 Anion Gap 9 BUN 22 H Creatinine 1.56 H Est GFR ( Amer) 54 L Est GFR (Non-Af Amer) 44 L Glucose 97 Calcium 10.1 Phosphorus 3.4 Magnesium 1.7 Impressions: Abdomen/Pelvis CT 07/25/17 00:00 IMPRESSION: 1. Cholelithiasis without other CT evidence of acute cholecystitis. 2. Small bilateral pleural effusions. 3. Cardiomegaly. 4. 3.0 cm infrarenal abdominal aortic aneurysm. Continued follow-up in 3 years recommended. Aortobifemoral bypass graft. This exam was performed according to our departmental dose-optimization program, which includes automated exposure control, adjustment of the mA and/or kV according to patient size and/or use of iterative reconstruction technique. Cervical Spine CT 07/25/17 00:00 IMPRESSION: DEGENERATIVE CHANGE OF THE CERVICAL SPINE WITHOUT FRACTURE. 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 Chest CT 07/25/17 00:00 IMPRESSION: Moderate bilateral posteriorly layering effusions. Chest X-Ray 07/25/17 00:00 IMPRESSION: RETROCARDIAC AIRSPACE DISEASE/ PLEURAL EFFUSION MAY BE ACUTE OR CHRONIC. NO ADDITIONAL ACUTE OR SIGNIFICANT FINDINGS. Head CT 07/25/17 00:00 IMPRESSION: EXTENSIVE AREAS OF WHITE MATTER DISEASE PRESUMABLY REPRESENTING CHRONIC MICRO AND MACRO VASCULAR ISCHEMIC CHANGE. NO CT EVIDENCE OF ACUTE INJURY. EVIDENCE OF ACUTE STROKE: NO. Carotid Doppler Study 07/28/17 00:00 IMPRESSION: There is occlusion of both internal carotid arteries as noted above. Other findings as noted above. Assessment & Plan - Diagnosis (1) Syncope Qualifiers: Syncope type: unspecified Qualified Code(s): R55 - Syncope and collapse Is this a current diagnosis for this admission?: Yes (2) Coronary artery disease Qualifiers: Coronary Disease-Associated Artery/Lesion type: unspecified vessel or lesion type [place] vs. transplanted heart: [place] heart Associated angina: angina presence unspecified Qualified Code(s): I25.10 - Atherosclerotic heart disease of [place] coronary artery without angina pectoris Is this a current diagnosis for this admission?: Yes (3) CKD (chronic kidney disease) stage 3, GFR 30-59 ml/min Is this a current diagnosis for this admission?: Yes (4) COPD (chronic obstructive pulmonary disease) Qualifiers: COPD type: unspecified COPD Qualified Code(s): J44.9 - Chronic obstructive pulmonary disease, unspecified Is this a current diagnosis for this admission?: Yes (5) HLD (hyperlipidemia) Is this a current diagnosis for this admission?: Yes (6) Hypertension Qualifiers: Hypertension type: essential hypertension Qualified Code(s): I10 - Essential (primary) hypertension Is this a current diagnosis for this admission?: Yes (7) NSTEMI (non-ST elevated myocardial infarction) Is this a current diagnosis for this admission?: Yes (8) Cardiomyopathy Qualifiers: Cardiomyopathy type: unspecified Qualified Code(s): I42.9 - Cardiomyopathy , unspecified Is this a current diagnosis for this admission?: Yes (9) Carotid artery occlusion Qualifiers: Laterality: bilateral Qualified Code(s): I65.23 - Occlusion and stenosis of bilateral carotid arteries Is this a current diagnosis for this admission?: Yes - Notes Notes: Syncope: 2D echo shows depressed LVEF at approximately 30-35%. Patient also noted to have bilateral carotid artery occlusion. Discussed that there is possibility that his syncope could have been related to ventricular tachyarrhythmia. However there other multiple competing etiologies that could have caused syncopal spell. Discussed that in view of positive troponin I, which could well be from just syncope, known CAD, the best option for him would be to be transferred to a tertiary care for cardiac catheterization and also electrophysiological study and probable placement of prophylactic defibrillator if no significant revascularization is needed. Patient however declines any transfer and just wishes to be treated medically. Patient was told that this was an inferior option as compared to aggressive approach of transfer with heart catheterization and evaluation for defibrillator treatment. However patient made decision to be just treated medically. Patient subsequently wished to be a DNR. Coronary artery disease: Patient is status post CABG. Currently without any angina symptoms. End STEMI: Patient ruled in for an STEMI based on cardiac enzymes. Patient also has left bundle branch block pattern. Please see discussion above. Cardiomyopathy: Patient noted to have significantly depressed LVEF. Discussed increased risk of sudden cardiac . Patient however does not want to pursue any such option at this time. Carotid artery occlusion: Bilateral total internal carotid artery occlusion noted. Chronic kidney disease: Currently stable. COPD: Currently severe. Patient apparently not been wearing his oxygen although he has home oxygen. Hyperlipidemia: Continue high potency statin therapy. Hypertension: Currently reasonably well controlled. - Time Time with patient: Greater than 35 minutes - CODE STATUS : was discussed, patient remains DO NOT RESUSCITATE. Surrogate decision-maker unchanged. Multiple medical problems were addressed. More than 50% of the time spent coordinating care, discussing management plans with involved caregivers. Management plans discussed with involved personnels. Medical decision making was of moderate to high complexity, patient's has multiple comorbidities. Medications reviewed and adjusted accordingly: Yes
[2017-07-28] MEDS: ATORVASTATIN CALCIUM 40 MG TABLET PO SCH (22:57)
[2017-07-29] MEDS: LANSOPRAZOLE 30 MG TAB.RAP.DR PO SCH (06:05)
[2017-07-29] MEDS: METOPROLOL SUCCINATE 25 MG TAB.SR.24H PO SCH (09:46)
[2017-07-29] MEDS: RANOLAZINE 500 MG TAB.SR.12H PO SCH (09:46)
[2017-07-29] MEDS: RAMIPRIL 1.25 MG CAPSULE PO SCH (09:46)
[2017-07-29] MEDS: CLOPIDOGREL BISULFATE 75 MG TABLET PO SCH (09:46)
--- NOTE | 2017-07-29 11:12 | PDOC DISCHARGE SUMMARY ---
General - Admit/Disc Date/PCP Admission Date/Primary Care Provider: 07/26/17 17:16 Discharge Date: 07/29/17 - Discharge Diagnosis (1) COPD (chronic obstructive pulmonary disease) Is this a current diagnosis for this admission?: Yes (2) NSTEMI (non-ST elevated myocardial infarction) Is this a current diagnosis for this admission?: Yes (3) Syncope Is this a current diagnosis for this admission?: Yes (4) CKD (chronic kidney disease) stage 3, GFR 30-59 ml/min Is this a current diagnosis for this admission?: Yes (5) HLD (hyperlipidemia) Is this a current diagnosis for this admission?: Yes (6) Hypertension Is this a current diagnosis for this admission?: Yes (7) Aneurysm of infrarenal abdominal aorta Is this a current diagnosis for this admission?: Yes - Additional Information Resuscitation Status: Full Code Discharge Diet: Cardiac Discharge Activity: Balance Activity w/Rest Prescriptions: Metoprolol Succinate [Toprol Xl 25 mg Tab.sr] 12.5 mg PO DAILY 60 Days #30 tab.sr.24h Ramipril [Altace 1.25 mg Capsule] 1.25 mg PO DAILY 30 Days #30 capsule Ranolazine [Ranexa 500 mg Tab.sr] 500 mg PO Q12 30 Days #60 tab.sr.12h Home Medications: Albuterol Sulfate [Proair HFA Inhalation Aerosol 8.5 gm MDI] 2 puff IH QIDP PRN 07/26/17 Atorvastatin Calcium [Lipitor 80 mg Tablet] 40 mg PO QHS 07/26/17 Budesonide/Formoterol Fumarate [Symbicort 160-4.5 Mcg Inhaler] 2 gm IH BID 07/26 Clopidogrel Bisulfate [Plavix 75 mg Tablet] 75 mg PO DAILY 07/26/17 Tiotropium [place] [Spiriva] 1 cap PO DAILY 07/26/17 Metoprolol Succinate [Toprol Xl 25 mg Tab.sr] 12.5 mg PO DAILY 60 Days #30 tab.sr.24h 07/29/17 Ramipril [Altace 1.25 mg Capsule] 1.25 mg PO DAILY 30 Days #30 capsule 07/29/17 Ranolazine [Ranexa 500 mg Tab.sr] 500 mg PO Q12 30 Days #60 tab.sr.12h 07/29/17 History of Present Illness History of Present Illness: BRIGITTE KRAMER is a 71 year old male presents to the hospital after going to [facility] in passing out. Patient states that he recently relocated here and has not been wearing his oxygen. Patient states that he does have COPD and has been told that he needs oxygen at all times. Family states that patient has been somewhat unsteady on his feet when he walks around the home. Patient states that he has had episodes of dizziness on a regular basis. When patient was asked more about dizziness he reports that he has at least 2 episodes every 2 weeks. Patient states that he has not passed out before. Patient denies any chest pain, palpitations, nausea, vomiting, or fever. Hospital Course Hospital Course: The patient was admitted for syncope. He did rule in for a non-ST myocardial infarction. An echocardiogram was performed. This demonstrated an ejection fraction of only 30-35%. In addition, grade 2-4 diastolic dysfunction was present. Major valvular abnormalities included mild to moderate mitral regurgitation. The patient was offered cardiac catheterization but declined. Cardiology was consulted and many of the patient's cardiac medications were changed. Lisinopril was changed to ramipril. The patient was started on Ranexa. The patient was not using his oxygen when he had syncope. We have instructed the patient to use oxygen 2 L at all times. During this hospitalization the patient also had carotid Dopplers which showed less than 50 % of cerebrovascular disease bilaterally. Incidental note is made of a 3 cm infrarenal abdominal aortic aneurysm. Further follow-up is recommended. Physical Exam Vital Signs: Temp Pulse Resp BP Pulse Ox 97.5 F 76 20 129/68 H 99 07/29/17 08:12 07/29/17 08:12 07/29/17 08:12 07/29/17 08:12 07/29/17 08:12 Intake & Output 07/28/17 07/29/17 07/30/17 06:59 06:59 06:59 Intake Total 1225 1094 Output Total 1 Balance 1225 1093 Weight 51.8 kg 51.5 kg Additional comments: The patient appears much older than the age of 71. He appears to be in poor overall health. However, his cognition and mentation are appropriate. He is not in any distress. He appears extremely thin and borders on cachexia. His facial appearance is unremarkable. His lungs are noted to be clear anteriorly. He has a few scattered crackles in the posterior lung [place]. His cardiac exam is regular without murmurs, gallops or rubs. The abdomen is soft, flat and benign. Bowel sounds are present in the lower quadrants. He does not have guarding or rebound noted and there are no hernias or masses present. The lower extremities are warm to touch without pitting edema. The skin is clean, dry, warm and intact without any lesions or rashes. Results Laboratory Results: 07/28/17 04:20 07/28/17 04:20 Impressions: Abdomen/Pelvis CT 07/25/17 00:00 IMPRESSION: 1. Cholelithiasis without other CT evidence of acute cholecystitis. 2. Small bilateral pleural effusions. 3. Cardiomegaly. 4. 3.0 cm infrarenal abdominal aortic aneurysm. Continued follow-up in 3 years recommended. Aortobifemoral bypass graft. This exam was performed according to our departmental dose-optimization program, which includes automated exposure control, adjustment of the mA and/or kV according to patient size and/or use of iterative reconstruction technique. Cervical Spine CT 07/25/17 00:00 IMPRESSION: DEGENERATIVE CHANGE OF THE CERVICAL SPINE WITHOUT FRACTURE. 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 Chest CT 07/25/17 00:00 IMPRESSION: Moderate bilateral posteriorly layering effusions. Chest X-Ray 07/25/17 00:00 IMPRESSION: RETROCARDIAC AIRSPACE DISEASE/ PLEURAL EFFUSION MAY BE ACUTE OR CHRONIC. NO ADDITIONAL ACUTE OR SIGNIFICANT FINDINGS. Head CT 07/25/17 00:00 IMPRESSION: EXTENSIVE AREAS OF WHITE MATTER DISEASE PRESUMABLY REPRESENTING CHRONIC MICRO AND MACRO VASCULAR ISCHEMIC CHANGE. NO CT EVIDENCE OF ACUTE INJURY. EVIDENCE OF ACUTE STROKE: NO. Carotid Doppler Study 07/28/17 00:00 IMPRESSION: There is occlusion of both internal carotid arteries as noted above. Other findings as noted above. Plan Discharge Plan: The patient will be discharged to home. The patient will need to follow-up with his primary animal care assistant in 1-2 weeks. It is also recommended that the patient follow-up with his primary maintenance shop technician in 1 week. Time Spent: Greater than 30 Minutes
[2017-07-29 12:31] VITALS: BP 124/92
--- NOTE | 2017-07-29 20:27 | PDOC PROGRESS REPORT ---
Subjective Progress Note for:: 07/29/17 Subjective:: I had a long discussion with the patient last night about further evaluation which included a heart catheterization and possible defibrillator placement. Patient however declined to pursue any such option and opted to be a DNR. Patient had time to think about his options and discuss with his children. He wishes to remain a DNR. After discussion with Dr. Mcclelland, it was felt that patient is likely to be discharged. He has been stable on current regimen. Patient seems to be doing better with gradual improvement. Patient still has shortness of breath. He is wearing oxygen. Pt is denying any chest arm or neck discomfort. Patient denying any PND, orthopnea. Patient denied any sustained palpitations, dizziness, syncope, near syncope. Patient denying any fever chills. Patient denying any other significant discomfort. Patient is maintaining sinus rhythm. Frequent ventricular ectopies are noted. Review of systems: Rest review of systems negative. Medications: Medications have been reviewed. Reason For Visit: NSTEMI Physical Exam Vital Signs: Temp Pulse Resp BP Pulse Ox 97.5 F 76 20 124/92 H 99 07/29/17 12:14 07/29/17 12:14 07/29/17 12:14 07/29/17 12:14 07/29/17 12:14 Intake & Output 07/28/17 07/29/17 07/30/17 06:59 06:59 06:59 Intake Total 1225 1094 Output Total 1 Balance 1225 1093 Weight 51.8 kg 51.5 kg Exam: GENERAL: well-nourished and in no acute distress. Alert and oriented x3 HEAD: Atraumatic, normocephalic. EYES: Pupils equal round and reactive to light, extraocular movements intact, sclera anicteric, conjunctiva are normal. ENT: TMs normal, nares patent, oropharynx clear without exudates. Moist mucous membranes. No oral ulcerations or bleeding gums noted NECK: supple without lymphadenopathy. Trachea is central. No cervical or axillary lymphadenopathy noted. Carotids are 2+, JVD WNL LUNGS: Respiration seems nonlabored, no significant accessory muscle action noted. Breath sounds clear to auscultation bilaterally and equal noted. No wheezes rales or rhonchi noted. No significant dullness noted on percussion. CHEST: Palpation of the chest wall shows no significant chest wall tenderness. No other significant abnormalities noted. 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 ABDOMEN: Soft, no significant tenderness appreciated, normoactive bowel sounds. No guarding, no rebound. No rigidity noted . No masses appreciated. EXTREMITIES: Pedal pulses are 1-2+, no calf tenderness noted. No clubbing or cyanosis.trace to 1+ pedal edema noted NEUROLOGICAL: Focused neurological exam showed no significant neurologic deficit. Normal speech, no focal weakness appreciated. PSYCH: Normal mood, normal affect. Judgment and insight within normal limits. SKIN: No significant ecchymosis, rash, ulcerations or signs of pruritus noted. MUSCULOSKELETAL EXAM: No significant joint swelling noted. Results Laboratory Results: 07/28/17 04:20 07/28/17 04:20 EKG Comments: Telemetry shows sinus rhythm with left bundle branch block pattern. Impressions: Abdomen/Pelvis CT 07/25/17 00:00 IMPRESSION: 1. Cholelithiasis without other CT evidence of acute cholecystitis. 2. Small bilateral pleural effusions. 3. Cardiomegaly. 4. 3.0 cm infrarenal abdominal aortic aneurysm. Continued follow-up in 3 years recommended. Aortobifemoral bypass graft. This exam was performed according to our departmental dose-optimization program, which includes automated exposure control, adjustment of the mA and/or kV according to patient size and/or use of iterative reconstruction technique. Cervical Spine CT 07/25/17 00:00 IMPRESSION: DEGENERATIVE CHANGE OF THE CERVICAL SPINE WITHOUT FRACTURE. 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 Chest CT 07/25/17 00:00 IMPRESSION: Moderate bilateral posteriorly layering effusions. Chest X-Ray 07/25/17 00:00 IMPRESSION: RETROCARDIAC AIRSPACE DISEASE/ PLEURAL EFFUSION MAY BE ACUTE OR CHRONIC. NO ADDITIONAL ACUTE OR SIGNIFICANT FINDINGS. Head CT 07/25/17 00:00 IMPRESSION: EXTENSIVE AREAS OF WHITE MATTER DISEASE PRESUMABLY REPRESENTING CHRONIC MICRO AND MACRO VASCULAR ISCHEMIC CHANGE. NO CT EVIDENCE OF ACUTE INJURY. EVIDENCE OF ACUTE STROKE: NO. Carotid Doppler Study 07/28/17 00:00 IMPRESSION: There is occlusion of both internal carotid arteries as noted above. Other findings as noted above. Assessment & Plan - Diagnosis (1) Syncope Qualifiers: Syncope type: unspecified Qualified Code(s): R55 - Syncope and collapse Is this a current diagnosis for this admission?: Yes (2) Coronary artery disease Qualifiers: Coronary Disease-Associated Artery/Lesion type: unspecified vessel or lesion type [place] vs. transplanted heart: [place] heart Associated angina: angina presence unspecified Qualified Code(s): I25.10 - Atherosclerotic heart disease of [place] coronary artery without angina pectoris Is this a current diagnosis for this admission?: Yes (3) CKD (chronic kidney disease) stage 3, GFR 30-59 ml/min Is this a current diagnosis for this admission?: Yes (4) COPD (chronic obstructive pulmonary disease) Qualifiers: COPD type: unspecified COPD Qualified Code(s): J44.9 - Chronic obstructive pulmonary disease, unspecified Is this a current diagnosis for this admission?: Yes (5) HLD (hyperlipidemia) Is this a current diagnosis for this admission?: Yes (6) Hypertension Qualifiers: Hypertension type: essential hypertension Qualified Code(s): I10 - Essential (primary) hypertension Is this a current diagnosis for this admission?: Yes - Notes Notes: Please see previous impression and plan. Patient has done reasonably well on medical management. Patient does understand that he is at increased risk of sudden cardiac because of cardiomyopathy with depressed LVEF. Patient prefers to continue with medical management. Have offered patient follow-up. Should be okay to discharge patient on current regimen including Ranexa. I will be happy to follow patient in the office. Patient was given my card. Overall prognosis is guarded. - Time Time with patient: 15-25 minutes - CODE STATUS was discussed, patient remains full code. Surrogate decision-maker unchanged. Multiple medical problems were addressed. More than 50% of the time spent coordinating care, discussing management plans with involved caregivers. Management plans discussed with involved personnels. Medical decision making was of moderate to high complexity , patient's has multiple comorbidities. Medications reviewed and adjusted accordingly: Yes
== END 2017-07-29 14:53 | disposition home or self-care (01) | DRG 281 ==
LOC: ER 14:23 → EH 17:47 → INTOOBSV 17:47 → EH 07-26 09:45 → OBSVTOIN 07-26 17:16 → 3N 07-26 17:53
PROVIDERS: ADMIT Emergency Medicine; ATTEND Emergency Medicine
DX: R55 Syncope and collapse (principal); I21.4 Non-ST elevation (NSTEMI) myocardial infarction; J44.1 Chronic obstructive pulmonary disease with (acute) exacerbation; I42.9 Cardiomyopathy, unspecified; N18.3 Chronic kidney disease, stage 3 (moderate); E78.5 Hyperlipidemia, unspecified; I12.9 Hypertensive chronic kidney disease with stage 1 through stage 4 chronic kidney disease, or unspecified chronic kidney disease; I71.4 Abdominal aortic aneurysm, without rupture; K80.20 Calculus of gallbladder without cholecystitis without obstruction; I65.23 Occlusion and stenosis of bilateral carotid arteries; I25.10 Atherosclerotic heart disease of native coronary artery without angina pectoris; E78.00 Pure hypercholesterolemia, unspecified; I44.7 Left bundle-branch block, unspecified; I49.3 Ventricular premature depolarization; Z60.2 Problems related to living alone; Z91.19 Patient's noncompliance with other medical treatment and regimen; Z79.899 Other long term (current) drug therapy; Z99.81 Dependence on supplemental oxygen; Z95.1 Presence of aortocoronary bypass graft; Z87.891 Personal history of nicotine dependence; Z83.3 Family history of diabetes mellitus; Z82.49 Family history of ischemic heart disease and other diseases of the circulatory system
CPT/HCPCS: 36415; 36600; 70450; 71045; 71250; 72125; 74176; 80048; 80053; 80061; 81001; 82550; 82553; 82803; 83735; 84100; 84439; 84443; 84484; 85025; 85610; 93005; 93010; 93306; 93880; 96360; 99285; G0378; G8978-GP; G8979-GP; G8987-GO; G8988-GO; G8989-GO; J2405; J3490; J7030